=== PATIENT | male | born 1955 | race Caucasian/White ===

== ENCOUNTER → 2020-12-27 16:12 | Outpatient (CLI) | payer BC, SELFPAY ==
--- NOTE | ~2020-12-27 | XR_ITS ---
XR foot LT min 3V DATE: 12/27/2020 16:54 INDICATION: Left foot pain TECHNIQUE: 4 views COMPARISON: December 05, 2006 left foot FINDINGS: Mild to moderate plantar calcaneal enthesopathy without erosive change or periostitis, stab le since 12/05/2006. Diffuse osteopenia. No fracture, dislocation, periosteal reaction or bone destruction.. IMPRESSION: Plantar calcaneal enthesopathy Reviewed, dictated and finalized at location A. OR RECRUITER
== END ==
PROVIDERS: PCP Internal Medicine; Visit Provider Internal Medicine
DX: M77.32 Calcaneal spur, left foot (principal)
CPT/HCPCS: 73630

== ENCOUNTER → 2021-01-05 11:48 | Outpatient (CLI) | payer BC, SELFPAY ==
--- NOTE | ~2021-01-05 | XR_ITS ---
EXAMINATION: XR shoulder RT min 2V DATE: 01/05/2021 12:27 INDICATION: Acute onset right shoulder pain post fall 3 weeks prior. TECHNIQUE: AP internally and externally rotated, AP oblique externally rotated and axillary views of the left shoulder were obtained. COMPARISON: None FINDINGS: Normal alignment. No fracture. Glenohumeral joint is normal. Mild acromioclavicular osteoarthritis. Soft tissues are unremarkable. Visualized portions of the lungs are clear. IMPRESSION: Mild right acromioclavicular osteoarthritis. No acute osseous abnormality. Reviewed, dictated and finalized at location B. AZZO SUPERVISOR
== END ==
PROVIDERS: PCP Internal Medicine; Visit Provider Internal Medicine
DX: M25.519 Pain in unspecified shoulder (principal); M19.011 Primary osteoarthritis, right shoulder
CPT/HCPCS: 73030

== ENCOUNTER → 2021-02-27 10:49 | Outpatient (CLI) | payer BC, SELFPAY ==
--- NOTE | ~2021-02-27 | MR_ITS ---
EXAMINATION: MR foot LT wo con DATE: 02/27/2021 11:36 INDICATION: Mid left foot pain TECHNIQUE: Magnetic resonance imaging (MRI) of the left fore/mid foot was performed without intraveno us contrast. Sequences included sagittal T1-weighted FSE, sagittal fluid sensitive FSE STIR, coronal PD-weighted FS FSE, coronal T1-weighted FSE, axial PD-weighted FS FSE, and axial PD-weighted FSE. COMPARISON: Left foot radiographs dated 12/27/2020 FINDINGS: Bone alignment is normal. Normal marrow signal throughout with no fracture, reactive edema or patholo gic marrow replacing process. Lisfranc ligament complex along with the collateral ligament complex at the metatarsophalangeal and interphalangeal joints are normal. Visualized portions of the flexor and extensor tendons are normal. Physiologic amount fluid in the joint spaces. No bursitis, tenosynoviti s or other abnormal fluid collections. There is mild subcutaneous edema over the dorsum of the forefo ot. Visualized intrinsic musculature in the mid and forefoot is unremarkable. IMPRESSION: 1. Mild subcutaneous edema over the dorsum of the mid and forefoot. Otherwise unremarkable MRI with n o osseous abnormality. Reviewed, dictated and finalized at location A. IMPRESSION: 1. Mild subcutaneous edema over the dorsum of the mid and forefoot. Otherwise u nremarkable MRI with no osseous abnormality.
== END ==
PROVIDERS: Visit Provider Podiatrist Foot & Ankle Surgery
DX: M79.672 Pain in left foot (principal); M79.89 Other specified soft tissue disorders
CPT/HCPCS: 73718

== ENCOUNTER 2021-03-05 02:19 | Emergency (ER) | payer BC, SELFPAY ==
--- NOTE | ~2021-03-05 | CT_ITS ---
EXAMINATION: CT abdomen pelvis wo con DATE: 03/05/2021 03:41 INDICATION: Right flank pain for 5 days. Nausea. TECHNIQUE: Computed tomography (CT) of the abdomen and pelvis was performed without intravenous contr ast. Automated exposure control and iterative reconstruction technique were employed. Exam dose: 139 1.94 mGy-cm total exam DLP. COMPARISON: None. FINDINGS: 3.7 mm middle lobe nodule (series 4 image 1). The included lower lung zones are clear of in filtrate or consolidation. Normal heart size. No pericardial or pleural effusion. There is surface nodularity of the liver consistent with cirrhosis. There is splenomegaly, spleen diego suring up to 15.3 cm vertical dimension. Prominent abdominal varices are noted. Cholelithiasis. No pericholecystic fluid or fat stranding. No bile duct or pancreatic duct dilatation . No pancreatic mass lesion is evident. Normal morphology of the adrenal glands. There are 2 pinpoint nonobstructing mid and lower pole right renal calculi. At least several probable right renal cyst measuring up to approximately 1.8 cm maximal dimension. No right ureteral or left urinary tract calculus or hydroureteronephrosis on either side. The urinary bladder is unremarkable. There is prostate enlargement and calcification. Right fat-containing inguinal hernia. Bilateral vas deferens calcifications suggesting diabetes. There is a prominent amount of fecal material throughout the colon. No bowel obstruction, bowel wall thickening, pneumatosis or intraperitoneal free air. Normal appendix. There is atherosclerotic calcification of the abdominal aorta and iliac and femoral arteries but no a neurysm. No intraperitoneal or retroperitoneal or pelvic mass lesion or adenopathy or ascites is evid ent. Posterior and interbody spinal fusion at L5-S1. IMPRESSION: Cirrhosis and portal venous hypertension, splenomegaly, varices Cholelithiasis Right renal probable cysts 2. Pinpoint nonobstructing right renal calculi Normal appendix Right fat-containing inguinal hernia Bilateral vas deferens calcifications suggesting diabetes Reviewed, dictated and finalized at Location A. Reviewed, dictated and finalized at location A.
[2021-03-05 02:25] VITALS: BP 174/76; PULSE 84; RESP 16; TEMP 36.2; O2SAT 99
[2021-03-05] MEDS: KETOROLAC 30 MG/ML VIAL (*BKC) IV PUSH (02:52)
[2021-03-05 02:56] LABS: Basophils Percent Auto 0.3 % (0.2-1.2); Eosinophils Absolute Auto 0.1 K/mm3 (0-0.3); Eosinophils Percent Auto 0.7 % (0-4.4); Hematocrit 47.3 % (42.0-52.0); Hemoglobin 16.3 g/dL (14.0-18.0); Immature Granulocyte Absolute 0.02 K/mm3 (0.00-0.031); Immature Granulocyte Percent A 0.3 % (0-0.5); Immature Platelet Fraction Pct 4.1 % (0.9-11.2); Lymphocytes Percent Auto 16.1 % (18.3-44.2); Mean Corpuscular HGB Conc 34.5 g/dl (32-36); Mean Corpuscular Hemoglobin 32.9 pg (26-34); Mean Corpuscular Volume 95.6 fl (80-100); Mean Platelet Volume 10.1 fl (7.4-10.4); Monocytes Absolute Auto 0.6 K/mm3 (0.1-0.6); Monocytes Percent Auto 8.4 % (2.6-8.5); Neutrophils Absolute Auto 5.5 K/mm3 (1.3-6.7); Neutrophils Percent Auto 74.2 % (45.5-73.1); Platelet Count Result 89 k/mm3 (150-375); Red Blood Count 4.95 M/mm3 (4.6-6.20); White Blood Count 7.5 K/mm3 (4.5-10.0)
[2021-03-05 03:02] LABS: Add Urine Microscopic? YES; Appearance Urine Clear (Clear); Bacteria Urine Trace /hpf; Bilirubin Urine Negative (Negative); Blood Urine Negative (Negative); Color Urine Yellow (Yellow); Glucose Urine UA 3+ mg/dL (Negative); Ketones Urine Negative (Negative); Leukocyte Esterase Ur Negative LEU/UL (Negative); Nitrate Urine Negative (Negative); Protein Urine Negative (Negative); RBC Urine 0-2 /hpf (0-2); Squamous Epithelial Cell Urine Rare /hpf (Few); WBC Urine 0-3 /hpf
[2021-03-05 03:03] LABS: Specific Grav Ur 1.041 (1.001-1.035)
[2021-03-05 03:06] LABS: Alanine Aminotransferase 42 U/L (4-50); Albumin Level 4.2 g/dL (3.5-5.1); Alkaline Phosphatase 116 U/L (38-126); Anion Gap 6 mmol/L (8-16); Aspartate Amino Transferase 49 U/L (17-59); Bilirubin,Total 1.7 mg/dL (0.2-1.3); Blood Urea Nitrogen 12 mg/dL (9-20); Calcium 9.2 mg/dL (8.4-10.2); Carbon Dioxide 26 mmol/L (22-30); Chloride 108 mmol/L (98-107); Estimated Glomerular Filt Rate > 60; Glucose 133 mg/dL (75-110); Lipase 107 U/L (23-300); Potassium 3.9 mmol/L (3.4-5.0); Sodium 140 mmol/L (137-145)
[2021-03-05] MEDS: MORPHINE SULFATE (*CRX) 4 MG/ML INJ IV PUSH (03:18)
[2021-03-05 03:53] VITALS: BP 167/78; PULSE 76; RESP 18; O2SAT 97
--- NOTE | 2021-03-05 04:17 | ED.GENADULT ---
HPI - General Adult General Chief complaint: Back Pain/Injury Stated complaint: back pain Time Seen by Provider: 03/05/21 02:31 Source: RN notes reviewed History of Present Illness HPI narrative: Patient presents emergency department from home for right lower back pain. Patient states symptoms began approximately 5 days ago. Pain is located in the right lower back and radiates around to the right side described as aching in nature and worse with rotation of the torso patient states he has been wearing an Aircast down on his left leg from an injury that seems to have caused him to walk a little uneven and is causes back pain he states he took Tylenol at home with minimal relief. Denies any fevers or chills chest pain shortness of breath abdominal pain nausea vomiting or any other symptoms Related Data Allergies Allergy/AdvReac Type Severity Reaction Status Date / Time MYCINS Allergy Mild Uncoded 07/23/10 13:32 Review of Systems Review of Systems: Narrative: Gen.: Denies fevers or chills ENT: Denies congestion Respiratory: Denies shortness of breath or cough CV: Denies chest pain or palpitations GI: Denies abdominal pain nausea, emesis or diarrhea denies burning, urgency, frequency or hematuria Musculoskeletal: See HPI Neuro: Denies numbness, tingling, weakness or focal weakness Skin: Denies rash Except as documented, all other systems reviewed and negative [facility] Past Medical History Medical History (Updated 03/05/21 @ 04:53 by Ridge Leigh DO) Hypertension Social History Social History (Updated 03/05/21 @ 04:51 by Ridge Leigh DO) Smoking status: Never smoker Exam Narrative: Exam Narrative: APPEARANCE: No acute distress, nontoxic, resting in bed EYES: EOMI HEENT: Normocephalic, atraumatic, OMM RESPIRATORY: No respiratory distress Clear to auscultation bilaterally with no rhonchi wheezing or rales. CARDIOVASCULAR: Regular rate and rhythm without murmurs rubs or gallops. ABDOMINAL: Soft, nontender, nondistended, no rebound or guarding right flank tenderness MUSCULOSKELETAl: Moves all extremities. No clubbing, cyanosis or edema. Back: No midline thoracic lumbar tenderness palpation turn palpation right para 2 muscles L3-5, pain worse with rotation of the left NEURO: Awake and alert. Following commands, speech normal, no focal deficits muscle strength 5 out of 5 bilateral lower extremities SKIN:: Warm, dry. No rashes lesions or abrasions PSYCHIATRIC: Normal affect/mood, Course Course Emergency Course: Discussed with patient his platelet count he states he does not have a history of low platelets and is followed by his PCP Discussed with patient results of workup and diagnosis. Discussed need for follow-up with primary care, proper use of medication, and reasons to return to the emergency department. Patient understands and agrees to current treatment plan Vital Signs Vital signs: Vital Signs Temperature 97.2 F L 03/05/21 02:25 Pulse Rate 84 03/05/21 02:25 Respiratory Rate 16 03/05/21 02:25 Blood Pressure 174/76 H 03/05/21 02:25 Pulse Oximetry 99 03/05/21 02:25 Temperature 97.2 F L 03/05/21 02:25 Pulse Rate 76 03/05/21 03:53 Respiratory Rate 18 03/05/21 03:53 Blood Pressure 167/78 H 03/05/21 03:53 Pulse Oximetry 97 03/05/21 03:53 Medical Decision Making Vital Signs Vital Signs: Vital Signs Temperature 97.2 F L 03/05/21 02:25 Pulse Rate 84 03/05/21 02:25 Respiratory Rate 16 03/05/21 02:25 Blood Pressure 174/76 H 03/05/21 02:25 Pulse Oximetry 99 03/05/21 02:25 Temperature 97.2 F L 03/05/21 02:25 Pulse Rate 76 03/05/21 03:53 Respiratory Rate 18 03/05/21 03:53 Blood Pressure 167/78 H 03/05/21 03:53 Pulse Oximetry 97 03/05/21 03:53 Lab Data Result diagrams: 03/05/21 02:48 03/05/21 02:49 Labs: Lab Results 03/05/21 03/05/21 03/05/21 Range/Units 02:48 02:48 02:49 WBC 7.5 (4.5-10.0) K/mm3
[2021-03-05 05:10] VITALS: BP 158/80; PULSE 72; RESP 16; O2SAT 97
== END 2021-03-05 05:10 | disposition home or self-care (01) ==
PROVIDERS: Emergency Provider Emergency Medicine; PCP Internal Medicine
DX: M54.5 Low back pain (principal); D69.6 Thrombocytopenia, unspecified; I10 Essential (primary) hypertension; K74.60 Unspecified cirrhosis of liver; K76.6 Portal hypertension; R16.1 Splenomegaly, not elsewhere classified; K80.20 Calculus of gallbladder without cholecystitis without obstruction; N20.0 Calculus of kidney; K40.90 Unilateral inguinal hernia, without obstruction or gangrene, not specified as recurrent; R93.89 Abnormal findings on diagnostic imaging of other specified body structures
CPT/HCPCS: 36415; 74176; 80053; 81001; 83690; 85025; 85055; 96374; 96375; 99284; J1885; J2270

== ENCOUNTER 2021-03-05 16:18 | Emergency (ER) | payer BC, SELFPAY ==
--- NOTE | ~2021-03-05 | XR_ITS ---
EXAMINATION: XR chest 1V portable DATE: 03/05/2021 18:43 INDICATION: Right-sided chest pain. TECHNIQUE: frontal view of the chest was obtained. COMPARISON: None FINDINGS: The lungs are clear with no focal airspace opacities, pulmonary edema, pleural effusion or pneumothor ax. The cardiomediastinal silhouette is normal. Mild thoracic spondylosis. IMPRESSION: 1. No acute cardiopulmonary disease. Reviewed, dictated and finalized at location A.
[2021-03-05 16:24] VITALS: BP 148/76; PULSE 82; RESP 18; TEMP 36.4; O2SAT 100
--- NOTE | 2021-03-05 17:25 | PC.NURSE ---
Arrives ambulatory steady gait from triage, c/o R side mid-back pain, states he fell months ago and had been wearing an aircast which made him walk uneven, thus straining his back. Was seen in ED last night for same, took prescribed muscle relaxer and Aleve w/o relief, returned to ED
--- NOTE | 2021-03-05 18:27 | ECG_ITS ---
Measurements Intervals [place] Rate: 71 P: 57 [place]: 172 QRS: -40 QRSD: 139 T: -1 QT: 440 QTc: 481 Interpretive Statements SINUS RHYTHM RIGHT BUNDLE BRANCH BLOCK CONSIDER INFERIOR INFARCT, AGE INDETERMINATE BASELINE ARTIFACT- II, AVR, AVF, V1 ABNORMAL ECG Electronically Signed On 03-05-2021 19:24:57 CDT by Lam Rosales D.O.
[2021-03-05 19:04] LABS: Basophils Percent Auto 0.2 % (0.2-1.2); Hematocrit 47.4 % (42.0-52.0); Hemoglobin 16.2 g/dL (14.0-18.0); Immature Granulocyte Absolute 0.04 K/mm3 (0.00-0.031); Immature Granulocyte Percent A 0.3 % (0-0.5); Lymphocytes Absolute Auto 0.87 K/mm3 (0.9-3.2); Lymphocytes Percent Auto 7.1 % (18.3-44.2); Mean Corpuscular HGB Conc 34.2 g/dl (32-36); Mean Corpuscular Hemoglobin 32.9 pg (26-34); Mean Corpuscular Volume 96.1 fl (80-100); Mean Platelet Volume 10.3 fl (7.4-10.4); Monocytes Absolute Auto 1.2 K/mm3 (0.1-0.6); Neutrophils Percent Auto 82.4 % (45.5-73.1); Platelet Count Result 80 k/mm3 (150-375); Red Blood Count 4.93 M/mm3 (4.6-6.20); White Blood Count 12.2 K/mm3 (4.5-10.0)
[2021-03-05 19:12] LABS: Anion Gap 6 mmol/L (8-16); Blood Urea Nitrogen 12 mg/dL (9-20); Calcium 9.2 mg/dL (8.4-10.2); Carbon Dioxide 28 mmol/L (22-30); Chloride 105 mmol/L (98-107); Estimated CRCL calculation 155 ml/min; Estimated Glomerular Filt Rate > 60; Glucose 127 mg/dL (75-110); Sodium 139 mmol/L (137-145)
[2021-03-05 19:23] LABS: Troponin I < 0.012 ng/mL (0.000-0.034)
--- NOTE | 2021-03-05 20:11 | ED.BACK ---
HPI - Back Pain/Injury General Chief Complaint: Back Pain/Injury Stated Complaint: back pain Time Seen by Provider: 03/05/21 17:16 Source: patient Mode of arrival: ambulatory Limitations: no limitations History of Present Illness HPI Narrative: 65-year-old with a history of thrombocytopenia and chronic low back pain here with complaints of left lower back pain. He also states that he was seen here in the ER had a CAT scan and blood work done was told to return to the ER if he had pain. Patient while he was sitting in the ER started having chest pain and he also states that he was short of breath. MD elicited complaint: back pain Pertinent past history: prior back pain Similar Symptoms Previously: Yes Quality: aching Location: lumbar spine Radiation: none Exacerbating factors: none Associated symptoms: denies other symptoms Related Data Allergies Allergy/AdvReac Type Severity Reaction Status Date / Time MYCINS Allergy Mild Unknown Uncoded 03/05/21 16:24 Review of Systems Review of Systems: All systems reviewed & are unremarkable except as noted in HPI and below Constitutional: Constitutional: Reports no additional constitutional complaints Eyes: Eyes: Reports no additional eye complaints ENT: Reports system reviewed and no additional complaints, except as documented Cardiovascular: Cardiovascular: Reports chest pain Respiratory: Respiratory: Reports dyspnea Gastrointestinal: Gastrointestinal: Reports no additional gastrointestinal complaints Musculoskeletal: Musculoskeletal: Reports as per HPI [facility] Past Medical History Medical History Hypertension Social History Social History Smoking status: Never smoker Gender identity (if verbalized by the patient): Male Exam Narrative: Exam Narrative: GENERAL: Well-appearing, well-nourished, and in no acute distress. HEAD: Normocephalic, atraumatic. EYES: PERRLA and EOMI.t. NECK: Supple. CHEST: Clear to auscultation. No respiratory distress. HEART: Regular rate and rhythm. No murmur heard. Normal peripheral pulses. ABDOMEN: Soft, nontender, nondistended, normal active bowel sounds. No CVA tenderness. EXTREMITIES: Normal range of motion. No edema. SKIN: Warm, dry, no rash. NEURO: No focal deficits. Alert and oriented x3. PSYCH: Normal mood and affect. Course Course Emergency Course: Patient while he was sitting in the room started having chest pain and shortness of breath. I did a EKG which was unremarkable did a cardiac work-up which was unremarkable as well. Informed patient about his lab work and EKG and chest x-ray findings his pain is atypical. He states by the time he got the results he is feeling better. He is requesting some form back pain. Vital Signs Vital signs: Vital Signs Temperature 36.4 C L 03/05/21 16:24 Pulse Rate 82 03/05/21 16:24 Respiratory Rate 18 03/05/21 16:24 Blood Pressure 148/76 H 03/05/21 16:24 Pulse Oximetry 100 03/05/21 16:24 Temperature 36.4 C L 03/05/21 16:24 Pulse Rate 82 03/05/21 16:24 Respiratory Rate 18 03/05/21 16:24 Blood Pressure 148/76 H 03/05/21 16:24 Pulse Oximetry 100 03/05/21 16:24 MDM - Back Pain/Injury Lab Data Result diagrams: 03/05/21 18:55 03/05/21 18:55 Labs: Lab Results 03/05/21 03/05/21 Range/Units 18:55 18:55 WBC 12.2 H (4.5-10.0) K/mm3 RBC 4.93 (4.6-6.20) M/mm3 Hgb 16.2 (14.0-18.0) g/dL Hct 47.4 (42.0-52.0) % MCV 96.1 (80-100) fl MCH 32.9 (26-34) pg MCHC 34.2 (32-36) g/dl RDW 13.0 (11.5-14.5) % Plt Count 80 L (150-375) k/mm3 MPV 10.3 (7.4-10.4) fl Immature Gran % (Auto) 0.3 (0-0.5) % Neut % (Auto) 82.4 H (45.5-73.1) % Lymph % (Auto) 7.1 L (18.3-44.2) % Antelope % (Auto) 10.0 H (2.6-8.5) % Eos % (Auto) 0.0 (0-4.4) % Baso % (Auto) 0.2 (0.2-1.2) % Lymph # (Aut
[2021-03-05 20:35] VITALS: BP 150/84; PULSE 79; RESP 18; O2SAT 99
== END 2021-03-05 20:37 | disposition home or self-care (01) ==
PROVIDERS: Emergency Provider Family Medicine; PCP Internal Medicine
DX: M54.5 Low back pain (principal); R07.89 Other chest pain; I10 Essential (primary) hypertension; I45.10 Unspecified right bundle-branch block; R94.31 Abnormal electrocardiogram [ECG] [EKG]
CPT/HCPCS: 36415; 71045; 80048; 84484; 85025; 85055; 93005; 99284

== ENCOUNTER 2021-03-21 11:47 | Outpatient (CLI) | payer BC, SELFPAY ==
--- NOTE | ~2021-03-21 | CT_ITS ---
EXAMINATION: CT abdomen pelvis w con EXAM DATE: 03/21/2021 12:29 INDICATION: Leukocytosis. TECHNIQUE: Spiral CT of the abdomen and pelvis was performed following intravenous injection of 100 m L Omnipaque 350. Axial, coronal and sagittal images of the abdomen and pelvis were reviewed. The do se-length product (DLP) for this examination was 1178.36 mGy-cm. The exposure was tailored according to patient size (auto mA exposure control), and iterative reconstruction (ASIR) was used as addition al dose reduction technique. Comparison is made to prior examination from 03/05/2021. FINDINGS: Patient has developed severe gallbladder distention and pericholecystic fat stranding. Ther e is small amount of pericholecystic fluid. There are several peripherally calcified gallstones measu ring up to 2.5 cm. Acute cholecystitis. Some reactive periportal lymphadenopathy. There is cirrhosis and portal hypertension, with large splenorenal collateralization. No portal venou s thrombosis. Trace perihepatic ascites. The adrenal glands, pancreas. Spleen measures 17 cm in crani ocaudal dimension, enlarged. Portal and splenic veins are patent. Kidneys enhance symmetrically. T here is no hydronephrosis. Scattered small renal cysts. The prostate is unremarkable. Small right in guinal fat-containing hernia. The bladder is unremarkable. There is mild scattered arteriosclerotic disease. The appendix is normal. The stomach and small bowel are unremarkable. There is moderate amount of c olonic stool. No free intraperitoneal gas. The heart is normal in size. There are no pericardial or pleural effusions. The lung bases are unremarkable. L5-S1 lumbar fusion. IMPRESSION: 1. Acute cholecystitis. 2. Cirrhosis, portal hypertension. Splenomegaly. Reviewed, dictated and finalized at location A.
== END 2021-03-21 11:48 | disposition home or self-care (01) ==
PROVIDERS: PCP Internal Medicine; Visit Provider Internal Medicine
DX: D72.829 Elevated white blood cell count, unspecified (principal); K74.69 Other cirrhosis of liver; K81.0 Acute cholecystitis; R16.1 Splenomegaly, not elsewhere classified
CPT/HCPCS: 74177; Q9967

== ENCOUNTER 2021-03-21 12:50 | Emergency (ER) | payer BC, SELFPAY ==
[2021-03-21 13:02] VITALS: BP 101/65; PULSE 88; RESP 18; TEMP 36.1; O2SAT 98
[2021-03-21 13:21] LABS: Basophils Percent Auto 0.3 % (0.2-1.2); Eosinophils Absolute Auto 0.1 K/mm3 (0-0.3); Eosinophils Percent Auto 1.2 % (0-4.4); Hematocrit 39.9 % (42.0-52.0); Hemoglobin 14.1 g/dL (14.0-18.0); Immature Granulocyte Absolute 0.09 K/mm3 (0.00-0.031); Immature Granulocyte Percent A 0.8 % (0-0.5); Lymphocytes Absolute Auto 1.02 K/mm3 (0.9-3.2); Lymphocytes Percent Auto 8.7 % (18.3-44.2); Mean Corpuscular HGB Conc 35.3 g/dl (32-36); Mean Corpuscular Hemoglobin 32.9 pg (26-34); Mean Platelet Volume 9.7 fl (7.4-10.4); Monocytes Absolute Auto 1.3 K/mm3 (0.1-0.6); Monocytes Percent Auto 11.1 % (2.6-8.5); Neutrophils Absolute Auto 9.1 K/mm3 (1.3-6.7); Neutrophils Percent Auto 77.9 % (45.5-73.1); Platelet Count Result 147 k/mm3 (150-375); Red Blood Count 4.29 M/mm3 (4.6-6.20); Red Cell Distribution Width 13.2 % (11.5-14.5); White Blood Count 11.7 K/mm3 (4.5-10.0)
--- NOTE | 2021-03-21 13:28 | ED.GENADULT ---
HPI - General Adult General Chief complaint: Abdominal Pain <Joseluis Montes PA-C - Last Filed: 03/21/21 15:52> Stated complaint: chills/abdominal pain <Joseluis Montes PA-C - Last Filed: 03/21/21 15:52> Time Seen by Provider: 03/21/21 12:54 <Joseluis Montes PA-C - Last Filed: 03/21/21 15:52> Source: patient, family, RN notes reviewed and old records reviewed <Joseluis Montes PA-C - Last Filed: 03/21/21 15:52> Mode of arrival: ambulatory <Joseluis Montes PA-C - Last Filed: 03/21/21 15:52> Limitations: no limitations <Joseluis Montes PA-C - Last Filed: 03/21/21 15:52> History of Present Illness HPI narrative: Patient is a 65-year-old male who presents from CAT scan after having a CAT scan showing acute cholecystitis patient has been having abdominal pain localized to the right upper quadrant patient has been experiencing this discomfort in the recent past and had a recent hospital visit for this patient notes that it typically occurs after eating localized to the right upper quadrant and to the right upper chest patient denies vomiting diarrhea patient currently notes minimal pain but has eaten very little today <Joseluis Montes PA-C - Last Filed: 03/21/21 15:52> Related Data Allergies/adverse reactions: Allergies Allergy/AdvReac Type Severity Reaction Status Date / Time clindamycin Allergy Unknown Unknown Verified 03/21/21 15:01 gentamicin Allergy Unknown Unknown Verified 03/21/21 15:01 Macrolide Antibiotics Allergy Unknown Unknown Verified 03/21/21 15:01 neomycin Allergy Unknown Unknown Verified 03/21/21 15:01 vancomycin Allergy Unknown Unknown Verified 03/21/21 15:01 MYCINS Allergy Mild Unknown Uncoded 03/21/21 13:11 <Joseluis Montes PA-C - Last Filed: 03/21/21 15:52> Review of Systems Review of Systems: All systems reviewed & are unremarkable except as noted in HPI and below <Joseluis Montes PA-C - Last Filed: 03/21/21 15:52> PMFSH Past Medical History Medical History: Medical History Hypertension <Joseluis Montes PA-C - Last Filed: 03/21/21 15:52> Social History Social History: Social History Smoking status: Never smoker Gender identity (if verbalized by the patient): Male <Joseluis Montes PA-C - Last Filed: 03/21/21 15:52> Exam Narrative: Exam Narrative: GENERAL: Well-appearing, well-nourished, and in no acute distress. HEAD: Normocephalic, atraumatic. EYES: PERRLA and EOMI. ENT: Nares clear, no rhinorrhea or epistaxis. Mucous membranes moist. CHEST: Clear to auscultation. No respiratory distress. No wheezes rales or rhonchi HEART: Regular rate and rhythm. No murmur heard. Normal peripheral pulses. ABDOMEN: Soft, minimal right upper quadrant tenderness to palpation, distended, normal active bowel sounds. EXTREMITIES: Normal range of motion. No edema. SKIN: Warm, dry, no rash. NEURO: No focal deficits. Alert and oriented x3. PSYCH: Normal mood and affect. <Joseluis Montes PA-C - Last Filed: 03/21/21 15:52> Course Course Emergency Course: Patient found to have acute cholecystitis will be transferred to [facility] for evaluation by general surgery patient agrees with this plan other hospitals including our general surgeon were contacted and recommended patient be sent to facility with hepatobiliary patient preferred [facility] who was contacted and Dr. Zamudio general surgeon has agreed to take the patient to the emergency department with Dr. Alfred as the accepting ER attending. Patient at this time hemodynamically stable ABCs and vital signs intact and stable. Patient has been hydrated and given Zosyn as was recommended by Dr. Gamez general surgery [facility] <Joseluis Montes PA-C - Last Filed: 03/21/21 15:52> DRIED FRUIT WASHER/PA Physician Supervision Pt presenting from CT scan diagnosed with acute ch
[2021-03-21 13:34] LABS: Alanine Aminotransferase 67 U/L (4-50); Albumin Level 2.9 g/dL (3.5-5.1); Alkaline Phosphatase 210 U/L (38-126); Anion Gap 4 mmol/L (8-16); Aspartate Amino Transferase 73 U/L (17-59); Bilirubin,Total 1.1 mg/dL (0.2-1.3); Blood Urea Nitrogen 10 mg/dL (9-20); Calcium 8.6 mg/dL (8.4-10.2); Carbon Dioxide 25 mmol/L (22-30); Chloride 105 mmol/L (98-107); Estimated CRCL calculation 153 ml/min; Estimated Glomerular Filt Rate > 60; Glucose 135 mg/dL (75-110); Lipase 343 U/L (23-300); Potassium 3.7 mmol/L (3.4-5.0); Sodium 134 mmol/L (137-145)
[2021-03-21] MEDS: PANTOPRAZOLE SODIUM IV 40 MG VIAL IV PUSH (13:45)
[2021-03-21] MEDS: SODIUM CHLORIDE 0.9% IV 1,000 ML 999 ML IV CONT (13:45)
[2021-03-21 13:50] LABS: Add Urine Microscopic? YES; Appearance Urine Clear (Clear); Bacteria Urine Trace /hpf; Bilirubin Urine Negative (Negative); Blood Urine Negative (Negative); Color Urine Yellow (Yellow); Glucose Urine UA 3+ mg/dL (Negative); Ketones Urine Negative (Negative); Leukocyte Esterase Ur Negative LEU/UL (Negative); Nitrate Urine Negative (Negative); Protein Urine Negative (Negative); Squamous Epithelial Cell Urine Rare /hpf (Few); WBC Urine 0-3 /hpf
[2021-03-21 16:10] VITALS: BP 127/67; PULSE 82; RESP 19; O2SAT 100
[2021-03-21] MEDS: MORPHINE SULFATE (*CRX) 2 MG/ML INJ IV PUSH (16:41)
== END 2021-03-21 17:34 | disposition short-term general hospital (02) ==
PROVIDERS: Emergency Provider Emergency Medicine; PCP Internal Medicine
DX: K81.0 Acute cholecystitis (principal); I10 Essential (primary) hypertension
CPT/HCPCS: 36415; 80053; 81001; 83690; 85025; 96361; 96365; 96375; 99285; C9113; J2270; J2543; J7030

== ENCOUNTER 2021-04-13 11:56 | Outpatient (CLI) | payer BC, SELFPAY ==
--- NOTE | ~2021-04-13 | US_ITS ---
EXAMINATION: US venous doppler LE EXAM DATE: 04/13/2021 12:44 INDICATION: Bilateral leg swelling. Redness. TECHNIQUE: Multiple grayscale, color flow and Doppler images of the lower extremity deep venous syste ms bilaterally were obtained and reviewed. There is no prior study for comparison. FINDINGS: Right side: The right common femoral, femoral and profunda veins demonstrate normal color flow, respi ratory variation, augmentation and compressibility. Compressibility, color flow confirmed within the right popliteal, posterior tibial, peroneal, and greater saphenous veins. Left side: The left common femoral, femoral and profunda veins demonstrate normal color flow, respira tory variation, augmentation and compressibility. Compressibility, color flow confirmed within the l eft popliteal, posterior tibial, peroneal, and greater saphenous veins. IMPRESSION: 1. No lower extremity deep venous thrombosis bilaterally. Reviewed, dictated and finalized at location A.
== END 2021-04-13 11:57 | disposition home or self-care (01) ==
PROVIDERS: PCP Internal Medicine; Visit Provider Internal Medicine
DX: M79.89 Other specified soft tissue disorders (principal)
CPT/HCPCS: 93970

== ENCOUNTER → 2021-08-28 15:08 | Outpatient (CLI) | payer BC, SELFPAY ==
--- NOTE | ~2021-08-28 | XR_ITS ---
XR knee RT 2V 08/28/2021 15:23 Indication: Right knee pain Procedure: 2 views right knee Comparison: No prior studies for comparison. Findings: There is mild patellofemoral compartment osteoarthritis. No fracture, subluxation or disloc ation. No significant joint effusion. No foreign bodies. Impression: 1: Mild patellofemoral compartment osteoarthritis. Reviewed, dictated and finalized at location A. Impression: 1: Mild patellofemoral compartment osteoarthritis.
== END ==
PROVIDERS: PCP Internal Medicine; Visit Provider Internal Medicine
DX: M25.561 Pain in right knee (principal); M17.11 Unilateral primary osteoarthritis, right knee
CPT/HCPCS: 73560

== ENCOUNTER 2022-10-15 17:41 | Emergency (ER) | payer OTHER, SELFPAY ==
--- NOTE | ~2022-10-15 | XR_ITS ---
EXAM: XR nasal bones min 3V DATE: 10/15/2022 18:27 HISTORY: FALL PAIN AND SWELLING TO NOSE . COMPARISON: None available. FINDINGS: Normal mineralization. Possible minimal depression of the anterior nasal bones in the late ral views. Otherwise no fracture. No lytic or blastic lesion. No intracranial calcification. No erosi on or periosteal change. Aerated spaces are clear. IMPRESSION: Possible minimal depression of the anterior nasal bones, may represent acute nasal bone f racture if accompanied by pain/point tenderness. Reviewed, dictated and finalized at location K. SMISSION SUPERINTENDENT IMPRESSION: Possible minimal depression of the anterior nasal bones, may repres ent acute nasal bone fracture if accompanied by pain/point tenderness.
--- NOTE | ~2022-10-15 | XR_ITS ---
EXAM: XR wrist LT min 3V, XR wrist RT min 3V DATE: 10/15/2022 18:26 (accession [id number]), 10/15/2022 18:27 (accession [id number]) HISTORY: FALL, PAIN AND SWELLING BILATERAL WRIST. . COMPARISON: None available. FINDINGS: Decreased mineralization. Comminuted mildly impacted intra-articular fracture of the dista l left radius. No lytic or blastic lesion. Mild scattered degenerative change. No erosion or perioste al change. Soft tissues within normal limits. IMPRESSION: Comminuted, mildly impacted, intra-articular fracture of the distal left radius. No acute osseous finding in the right wrist. Reviewed, dictated and finalized at location K. RVISOR MODEL MAKING IMPRESSION: Comminuted, mildly impacted, intra-articular fracture of the distal left radius. No acute osseous finding in the right wrist.
[2022-10-15 17:57] VITALS: BP 119/67; PULSE 69; RESP 18; TEMP 36.8; O2SAT 98
--- NOTE | 2022-10-15 18:53 | ED.GENADULT ---
HPI - General Adult General Chief complaint: Fall Stated complaint: FALL/INJURIES Time Seen by Provider: 10/15/22 18:39 Source: patient Mode of arrival: ambulatory Limitations: no limitations History of Present Illness HPI narrative: Patient presents today after a fall last night around 10:00 p.m. in his home. States he fell forward onto outstretched hand as, striking his nose on the ground as well. Denies loss of consciousness. He did have some epistaxis after the fall. Denies headache, nausea vomiting, vision changes. Does have a bit of dizziness, but states this is baseline with his other, ?health issues? and is no worse than normal. He is having pain in his bilateral wrists concurrently rates his pain 6/10. He has tried no medication for symptoms prior to arrival. Related Data Allergies Allergy/AdvReac Type Severity Reaction Status Date / Time clindamycin Allergy Unknown Unknown Verified 10/15/22 18:45 gentamicin Allergy Unknown Unknown Verified 10/15/22 18:45 Macrolide Antibiotics Allergy Unknown Unknown Verified 10/15/22 18:45 neomycin Allergy Unknown Unknown Verified 10/15/22 18:45 vancomycin Allergy Unknown Unknown Verified 10/15/22 18:45 MYCINS Allergy Mild Unknown Uncoded 10/15/22 18:45 Review of Systems Review of Systems: CONSTITUTIONAL: Denies body aches, fever, chills, or sweats. EYES: Denies visual changes, redness, or discharge. ENT: Denies rhinorrhea, congestion, sore throat, or otalgia. CARDIOVASCULAR: Denies chest pain, palpitations, or edema. RESPIRATORY: Denies cough or dyspnea. GASTROINTESTINAL: Denies abdominal pain, nausea, vomiting, or diarrhea. GENITOURINARY: Denies dysuria or hematuria. SKIN: Denies rash, itching, or wounds. +Facial bruising MUSCULOSKELETAL: Denies back pain, or myalgia.+ bilateral wrist pain NEUROLOGIC: Denies headache, numbness, tingling, or weakness. PSYCH: Denies depression or anxiety. [facility] Past Medical History Medical History Hypertension Social History Social History Smoking status: Never smoker Gender identity (if verbalized by the patient): Male Comments At time of signature, I have reviewed and agree with nursing past medical, surgical, social and family history unless otherwise noted. Please see nursing chart for further information. There is no relevant family history pertinent to the presenting complaint Exam Narrative: GENERAL: Well-appearing, well-nourished, and in no acute distress. HEAD: Normocephalic EYES: EOMI. PERRL. No nystagmus. No redness or drainage. Conjunctivae normal. ENT: Mucous membranes pink and moist. Nasal bridge maintainer. Patient has ecchymosis over the nasal bridge that extends underneath both eyes. NECK: Normal AROM. CHEST: No respiratory distress. Clear to auscultation. HEART: Regular rate and rhythm. No murmur appreciated. Normal peripheral pulses. EXTREMITIES: Right wrist: Mild soft tissue tenderness about the wrist. Mild edema. Distal sensation intact. Capillary refill normal. Radial pulse normal. Full range of motion with mild increased pain. Left wrist: Tenderness along the distal radius with moderate edema. Distal sensation intact. Capillary refill normal. Radial pulse normal. Decreased range of motion due to pain. SKIN: Warm, dry, no rash. Capillary refill normal. Normal skin turgor. NEURO: No focal deficits. Alert and oriented x3. Gait steady. PSYCH: Normal affect. No signs of depression or anxiety. Course Course Level of Care: Express Care Visit Vital Signs Vital signs: Vital Signs Temperature 98.3 F 10/15/22 17:57 Pulse Rate 69 10/15/22 17:57 Respiratory Rate 18 10/15/22 17:57 Blood Pressure 119/67 10/15/22 17:57 Pulse Oximetry 98 10/15/22 17:57 Oxygen Delivery Room Air 10/15/22 17:57 Temperature 98.3 F 10/15/22 17:57 Pulse Rate 69 10/15/22 17:57
== END 2022-10-15 19:22 | disposition home or self-care (01) ==
PROVIDERS: Emergency Provider Nurse Practitioner; PCP Internal Medicine
DX: S62.102A Fracture of unspecified carpal bone, left wrist, initial encounter for closed fracture (principal); S02.2XXB Fracture of nasal bones, initial encounter for open fracture; S63.501A Unspecified sprain of right wrist, initial encounter; I10 Essential (primary) hypertension; W18.39XA Other fall on same level, initial encounter; Y92.009 Unspecified place in unspecified non-institutional (private) residence as the place of occurrence of the external cause
CPT/HCPCS: 29125; 70160; 73110; 99214; A4565; G0463

== ENCOUNTER 2023-05-17 11:18 | Outpatient (CLI) | payer MEDICARE, SELFPAY ==
--- NOTE | ~2023-05-17 | XR_ITS ---
Cervical Spine: AP, lateral, open-mouth views Clinical History: Pain Findings: The normal lordotic curve is maintained. No fracture seen. There is minimal grade 1 anterol isthesis of C3 over C4. There is mild to moderate facet arthropathy at C3-C4 and C4-C5. The intervert ebral disc spaces are well maintained. Pre-vertebral soft tissues are unremarkable. Impression: Minimal grade 1 anterolisthesis of C3 over C4. Facet arthropathy the mid upper to mid cervical spine, as detailed above. Reviewed, dictated and finalized at location M. Impression: Minimal grade 1 anterolisthesis of C3 over C4. Facet arthropathy the mid upper to mid cervical spine, as detailed above.
--- NOTE | ~2023-05-17 | XR_ITS ---
AP and lateral views of the bilateral hips Clinical history: Pain Findings: No acute fracture or dislocation is seen. Osseous alignment is anatomic. Bilateral hip and SI joint spaces are preserved. Lumbosacral spinal fixation hardware is partially imaged. Soft tissues are unremarkable. Impression: Unremarkable bilateral hip joints. Lumbosacral spinal fusion hardware, partially imaged. Reviewed, dictated and finalized at location . Impression: Unremarkable bilateral hip joints. Lumbosacral spinal fusion hardware, partially imaged.
== END 2023-05-17 11:19 | disposition home or self-care (01) ==
PROVIDERS: PCP Internal Medicine; Visit Provider Internal Medicine
DX: M47.812 Spondylosis without myelopathy or radiculopathy, cervical region (principal); M54.2 Cervicalgia; M25.552 Pain in left hip; M25.551 Pain in right hip
CPT/HCPCS: 72040; 73521

== ENCOUNTER 2023-05-24 09:50 | Outpatient (CLI) | payer MEDICARE, SELFPAY ==
[2023-05-24 10:39] LABS: Basophils Percent Auto 0.4 % (0.2-1.2); Eosinophils Absolute Auto 0.2 K/mm3 (0-0.3); Eosinophils Percent Auto 3.7 % (0-4.4); Hematocrit 38.1 % (42.0-52.0); Hemoglobin 13.1 g/dL (14.0-18.0); Immature Granulocyte Absolute 0.02 K/mm3 (0.00-0.031); Immature Granulocyte Percent A 0.4 % (0-0.5); Immature Platelet Fraction Pct 4.5 % (0.9-11.2); Lymphocytes Absolute Auto 1.36 K/mm3 (0.9-3.2); Lymphocytes Percent Auto 26.5 % (18.3-44.2); Mean Corpuscular HGB Conc 34.4 g/dl (32-36); Mean Platelet Volume 10.9 fl (7.4-10.4); Monocytes Absolute Auto 0.5 K/mm3 (0.1-0.6); Monocytes Percent Auto 9.7 % (2.6-8.5); Neutrophils Absolute Auto 3.1 K/mm3 (1.3-6.7); Neutrophils Percent Auto 59.3 % (45.5-73.1); Platelet Count Result 69 k/mm3 (150-375); Red Blood Count 3.85 M/mm3 (4.6-6.20); Red Cell Distribution Width 13.7 % (11.5-14.5); White Blood Count 5.1 K/mm3 (4.5-10.0)
[2023-05-24 10:47] LABS: Alanine Aminotransferase 38 U/L (6-50); Albumin Level 2.9 g/dL (3.5-5.1); Alkaline Phosphatase 110 U/L (38-126); Anion Gap 5 mmol/L (8-16); Aspartate Amino Transferase 42 U/L (17-59); Bilirubin,Total 1.5 mg/dL (0.2-1.3); Blood Urea Nitrogen 10 mg/dL (9-20); Carbon Dioxide 25 mmol/L (22-30); Chloride 110 mmol/L (98-107); Estimated Glomerular Filt Rate > 60; Glucose 99 mg/dL (65-110); Potassium 3.5 mmol/L (3.4-5.0); Sodium 140 mmol/L (137-145)
[2023-05-24 10:54] LABS: INR 1.4; Prothrombin Time 17.8 Seconds (11.1-14.7)
[2023-05-24 11:07] LABS: Large Platelets Present; Platelet Clumps Present; Platelet Estimate Decreased (Adequate); Schistocytes None Seen (NORMAL)
[2023-05-30 14:43] LABS: Alpha Fetoprotein Tumor Marker 2.7 ng/mL (<6.1)
== END 2023-05-24 09:51 | disposition home or self-care (01) ==
PROVIDERS: PCP Internal Medicine
DX: K74.69 Other cirrhosis of liver (principal)
CPT/HCPCS: 36415; 80053; 82105; 85025; 85055; 85610

== ENCOUNTER 2024-09-09 09:59 | Outpatient (CLI) | payer MEDICARE, SELFPAY ==
--- NOTE | ~2024-09-09 | US_ITS ---
Limited Abdominal Sonogram: Real-time sonographic imaging of the right upper quadrant was performed. Clinical History: Cirrhosis Findings: The liver appears heterogeneous with nodular contour, compatible cirrhosis. No focal mass or biliary dilatation evident. Main portal vein demonstrates normal direction of flow. The gallbladde r is partially distended, and appears normal with no definite evidence of gallstone or wall thickenin g. The common bile duct measures 4 mm. The visualized pancreas, aorta, and IVC are unremarkable. Impression: Cirrhotic morphology of the liver, as above. No focal mass seen. Reviewed, dictated and finalized at location M. ICE OBSERVER CHIEF Impression: Cirrhotic morphology of the liver, as above. No focal mass seen.
== END 2024-09-09 10:00 | disposition home or self-care (01) ==
PROVIDERS: PCP Internal Medicine
DX: K74.69 Other cirrhosis of liver (principal)
CPT/HCPCS: 36415; 76705; 80053; 82105; 82140; 83036; 85025; 85055; 85610

== ENCOUNTER 2024-09-09 16:14 | Outpatient (CLI) | payer MEDICARE, SELFPAY ==
[2024-09-09 17:13] LABS: Basophils Percent Auto 0.5 % (0.2-1.2); Eosinophils Absolute Auto 0.1 K/mm3 (0-0.3); Eosinophils Percent Auto 2.4 % (0-4.4); Hematocrit 38.5 % (42.0-52.0); Hemoglobin 13.3 g/dL (14.0-18.0); Immature Granulocyte Absolute 0.02 K/mm3 (0.00-0.031); Immature Granulocyte Percent A 0.5 % (0-0.5); Immature Platelet Fraction Pct 3.3 % (0.9-11.2); Lymphocytes Absolute Auto 0.96 K/mm3 (0.9-3.2); Lymphocytes Percent Auto 25.9 % (18.3-44.2); Mean Corpuscular HGB Conc 34.5 g/dl (32-36); Mean Corpuscular Hemoglobin 33.8 pg (26-34); Monocytes Absolute Auto 0.4 K/mm3 (0.1-0.6); Monocytes Percent Auto 11.1 % (2.6-8.5); Neutrophils Absolute Auto 2.2 K/mm3 (1.3-6.7); Neutrophils Percent Auto 59.6 % (45.5-73.1); Platelet Count Result 65 k/mm3 (150-375); Red Blood Count 3.93 M/mm3 (4.6-6.20); Red Cell Distribution Width 14.7 % (11.5-14.5); White Blood Count 3.7 K/mm3 (4.5-10.0)
[2024-09-09 17:20] LABS: Ammonia 101 umol/L (9-30)
[2024-09-09 17:21] LABS: Alanine Aminotransferase 43 U/L (6-50); Albumin Level 2.8 g/dL (3.5-5.1); Alkaline Phosphatase 115 U/L (38-126); Anion Gap 2 mmol/L (4-12); Aspartate Amino Transferase 45 U/L (17-59); Bilirubin,Total 3.3 mg/dL (0.2-1.3); Blood Urea Nitrogen 10 mg/dL (9-20); Calcium 8.3 mg/dL (8.4-10.2); Carbon Dioxide 22 mmol/L (22-30); Chloride 117 mmol/L (98-107); Estimated Glomerular Filt Rate > 60; Glucose 103 mg/dL (65-110); Potassium 3.6 mmol/L (3.4-5.0); Sodium 141 mmol/L (137-145)
[2024-09-09 17:22] LABS: INR 1.5; Prothrombin Time 18.6 Seconds (11.1-14.7)
[2024-09-09 18:43] LABS: Hemoglobin A1C 5.4 % (<5.7)
[2024-09-14 10:59] LABS: Alpha Fetoprotein Tumor Marker 3.1 ng/mL (<6.1)
== END 2024-09-09 16:15 | disposition home or self-care (01) ==
PROVIDERS: PCP Internal Medicine; Visit Provider Internal Medicine
DX: E11.9 Type 2 diabetes mellitus without complications (principal); K74.60 Unspecified cirrhosis of liver; D69.6 Thrombocytopenia, unspecified
CPT/HCPCS: 36415; 80053; 82105; 82140; 83036; 85025; 85055; 85610

== ENCOUNTER 2024-09-23 12:49 | Emergency (ER) | payer MEDICARE, SELFPAY ==
--- NOTE | ~2024-09-23 | XR_ITS ---
EXAMINATION: [id number] DATE: 09/23/2024 14:48 INDICATION: Right rib pain. Fall. TECHNIQUE: A frontal view of the chest and 2 views on 3 radiographs of the right ribs were obtained. COMPARISON: Chest single view 03/05/2021 FINDINGS: There is no pneumonia, pleural effusion, or pneumothorax. The heart size is normal. There a re multiple old healed right rib fractures. There are acute fractures of right fifth and sixth ribs. IMPRESSION: 1. Acute fractures of right fifth and sixth ribs. Reviewed, dictated and finalized at location A. WRAPPER
--- NOTE | ~2024-09-23 | XR_ITS ---
EXAMINATION: XR shoulder RT min 2V DATE: 09/23/2024 13:28 INDICATION: Right shoulder pain post fall TECHNIQUE: AP internally and externally rotated, AP oblique externally rotated and transscapular Y vi ews of the right shoulder were obtained. COMPARISON: None FINDINGS: Normal alignment. No fracture.Mild glenohumeral and moderate acromioclavicular osteoarthritis. Mild dystrophic calcification projecting over the middle facet of the greater tuberosity consistent with l ikely infraspinatus calcific tendinitis. Soft tissues are unremarkable. Mild blunting at the right co stophrenic angle which could represent atelectasis or scarring or very small right pleural effusion. IMPRESSION: Mild glenohumeral and moderate acromioclavicular osteoarthritis. No acute osseous abnormality. 2. Likely distal infraspinatus calcific tendinitis. Reviewed, dictated and finalized at location B. IAC TECH IMPRESSION: Mild glenohumeral and moderate acromioclavicular osteoarthritis. No acute osseo us abnormality. 2. Likely distal infraspinatus calcific tendinitis.
--- NOTE | 2024-09-23 12:54 | ED_ITS ---
HPI - Extremity Injury (Upper) General Chief Complaint: Extremity Injury, Upper Stated Complaint: FALL/LEFT ARM INJURY Time Seen by Provider: 09/23/24 12:54 Source: patient Mode of arrival: ambulatory Limitations: no limitations History of Present Illness HPI narrative: Patient is a 68-year-old male who presents with right shoulder and right rib pain after losing balance and falling last night. Patient also ripped back left thumb nail. Patient is currently on meloxicam and muscle relaxers. Patient is unable to take Tylenol due to cirrhosis. Patient states he is still able to move arm in all directions it is just painful. Patient reports pain in ribs under armpit are the most painful. Patient reports coughing makes pain worse. Denies any bruising Related Data Home Medications Medication Instructions Recorded Confirmed pantoprazole 20 mg tablet,delayed 20 mg PO QAM 10/22/22 09/23/24 release atorvastatin 40 mg tablet 40 mg PO DAILY 09/23/24 09/23/24 carvedilol 3.125 mg tablet 3.125 mg PO DAILY 09/23/24 09/23/24 dapagliflozin propanediol 10 mg 10 mg PO DAILY 09/23/24 09/23/24 tablet (Farxiga) desloratadine 5 mg tablet 5 mg PO DAILY 09/23/24 09/23/24 furosemide 20 mg tablet 20 mg PO DAILY 09/23/24 09/23/24 glipizide 5 mg tablet 5 mg PO DAILY 09/23/24 09/23/24 lisinopril 20 mg tablet 20 mg PO DAILY 09/23/24 09/23/24 meloxicam 7.5 mg tablet 7.5 mg PO DAILY 09/23/24 09/23/24 methocarbamol 500 mg tablet 500 mg PO DIRECTED 09/23/24 09/23/24 Allergies Allergy/AdvReac Type Severity Reaction Status Date / Time clindamycin Allergy Unknown Unknown Verified 09/23/24 13:06 gentamicin Allergy Unknown Unknown Verified 09/23/24 13:06 Macrolide Antibiotics Allergy Unknown Unknown Verified 09/23/24 13:06 neomycin Allergy Unknown Unknown Verified 09/23/24 13:06 vancomycin Allergy Unknown Unknown Verified 09/23/24 13:06 MYCINS Allergy Mild Unknown Uncoded 02/04/23 10:31 Review of Systems Review of Systems: All systems reviewed & are unremarkable except as noted in HPI and below Constitutional: Constitutional: Denies body ache(s), Denies chills, Denies fatigue, Denies fever(s), Denies headache(s), Denies malaise and Denies weakness Eyes: Eyes: Denies blurry vision, Denies irritation and Denies loss of vision ENT: Denies otalgia, Denies headache(s), Denies nasal discharge, Denies sinus pain and Denies sore throat Cardiovascular: Cardiovascular: Denies chest pain, Denies irregular heart rhythm and Denies dyspnea Respiratory: Respiratory: Denies dyspnea Gastrointestinal: Gastrointestinal: Denies abdominal pain, Denies melena, Denies hematochezia, Denies diarrhea, Denies nausea and Denies vomiting Musculoskeletal: Musculoskeletal: Reports back pain, Denies myalgias and Reports arthralgias Integumentary/Breasts: Skin/Breast: Denies pruritus and Denies rash Neurologic: Denies headache(s), Denies loss of vision and Denies weakness Psychiatric: Psychiatric: Reports no additional psychiatric complaints Endocrine: Endocrine: Denies fatigue PMFSH Past Medical History Medical History Hypertension Family History Family History Mother Cancer Diabetes mellitus Hypertension Father Cancer Heart disease Social History Social History Smoking status: Current every day smoker Tobacco type: cigarettes Alcohol intake: never Substance use type: marijuana Lack of Transportation: No Lack of Food: Never True Current Housing: I Have Housing Concerned About Future Housing: No Difficulty Paying Gas/Electric Bills: No Difficulty Paying for Meds: No Currently Unemployed: No Education: High School Diploma/GED Difficulty w/ Childcare or Family Care: No Living arrangements: with family Occupation/Education: retired Gender identity (if verbalized by the patient): Male Comments At time of signature, agree with nursing past medical, surgical, social and family history. There is no relevant family history pertinent to the presenting complaint. Exam Const: General: cooperative, healthy appearing, comfortable, no acute distress and well nourished Nutritional Appearance: well nourished Orientation/consciousness: patient oriented x3 Limitations: no limitations HENMT: Head: normal to inspection, normocephalic and atraumatic Ears: hearing grossly normal bilaterally and external ears normal Face/Nose/Sinus: Normal external nose present, normal facial exam and face symmetric Face and sinus: normal facial exam and face symmetric Mouth: Yes lip normal Eyes: General: appearance normal, both eyes and all related structures Alignment and Position: alignment normal and position normal Periorbital: periorbital findings normal Eyelids: eyelids normal Pupils: Equal, round and reactive pupils present EOM: EOMs intact bilaterally Neck: Neck: normal visual inspection, full ROM and supple Chest: Chest palpation & inspection: normal inspection of the chest and tenderness rib right anterior-axillary line involving the 5th rib and involving the 6th rib Resp: Effort & Inspection: normal respiratory effort and able to speak in complete sentences Auscultation: clear to auscultation bilaterally Cardio: Rate: regular rate Rhythm: regular rhythm Heart sounds: S1 mervat l heart sound present and S2 normal heart sound present GI: Inspection: normal to inspection Skin: General skin exam: normal color and no rashes or lesions noted Neuro: General: patient oriented x3 and moves all extremities Cranial nerves: Yes Equal, round and reactive pupils present Speech: normal speech Gait exam (Neuro): Normal gait present Extrem: General: normal to inspection, full ROM and no edema Right upper extremity: shoulder/upper arm normal to inspection, tenderness of the scapula and over the deltoid bursa and abnormal ROM pain with active ROM in ABduction a nd in extension; but not in ADduction and but not in flexion; no swelling, no abrasions, no ecchymosis and no deformity and elbow/forearm normal to inspection, normal ROM and distal pulses intact; no tenderness and no swelling Left upper extremity: hand normal capillary refill, neuromotor exam normal Details: wrist extension normal, thumb opposition normal, thumb IP flexion normal, thumb ADduction normal and fingers 2-5 ABduction normal, neurosensory exam normal Details: radial nerve sensory function normal, ulnar nerve sensory function normal, median nerve sensory function normal and digital nerve sensory function normal, tendon exam normal Location: of all digits Details: extensor tendon, flexor digitorum profundus and flexor digitorum superficialis, tenderness of the thumb involving the entire digit, normal ROM of fingers, no swelling and ecchymosis of the thumb involving the entire digit Hand/finger images: 1. Attachment point of nail. Rest of nail detached from the nail bed. No active bleeding Psych: Appearance: grossly normal and well kempt Mental Status: mental status grossly normal Speech and movement: Normal speech and movement present Affect: normal affect Attitude: cooperative Thought process: Normal thought process present Course Course Emergency Course: Patient is aware of diagnosis, understands and agrees to treatment plan. An ticipatory guidance given. Patient agrees to follow-up as directed and is aware of reasons to seek care at the emergency department. Portions of this record may have been created with voice recognition software Level of Care: Express Care Visit Vital Signs Vital signs: Reviewed MDM - Extremity Injury (Upper) MDM Narrative Medical decision making narrative: Exam findings show no acute concerns or changes; patient is non-toxic appearing and is in no distress.? Patient is appropriate for outpatient treatment and follow-up. Discharge instructions reviewed with patient, as well as provided in writing per nursing staff. The instructions also include specific and strict return/GO TO THE ER as well as f/u information. All questions have been answered, and the patient deny any further questions with discharge and discharge plan. Differential Diagnosis Differential diagnosis: Likely dislocation of shoulder, fracture of humerus, fra cture of clavicle and other (Shoulder sprain, arthritis rib fracture) Medical Records Attestation: I reviewed the patient's medical records. Imaging Data Radiologist's impression: EXAMINATION: XR shoulder RT min 2V DATE: 09/23/2024 13:28 INDICATION: Right shoulder pain post fall TECHNIQUE: AP internally and externally rotated, AP oblique externally rotated and transscapular Y views of the right shoulder were obtained. COMPARISON: None FINDINGS: Normal alignment. No fracture.Mild glenohumeral and moderate acromioclavicular osteoarthritis. Mild dystrophic calcification projecting over the middle facet of the greater tuberosity consistent with likely infraspinatus calcific tendi nitis. Soft tissues are unremarkable. Mild blunting at the right costophrenic angle which could represent atelectasis or scarring or very small right pleural effusion. IMPRESSION: Mild glenohumeral and moderate acromioclavicular osteoarthritis. No acute osseous abnormality. 2. Likely distal infraspinatus calcific tendinitis. Discharge Plan Discharge Clinical Impression: Avulsion of nail Shoulder sprain Qualifiers: Encounter type: initial encounter Shoulder sprain type: unspecified sprain Laterality: right Qualified Code(s): S43.401A - Unspecified sprain of right shoulder joint, initial encounter Right rib fracture Qualifiers: Encounter type: initial encounter Rib fracture type: multiple ribs Fracture type: closed Qualified Code(s): S22.41XA - Multiple fractures of ribs, right side, initial encounter for closed fracture Patient Disposition: Home, Self-Care Condition: Stable Instructions: Osteoarthritis (ED), Rib Fracture (ED), Nail Avulsion (ED) Additional Instructions: X-ray confirmed fracture of ribs Pain may get worse for a week and last for up to eight weeks.The most important thing is to get your pain under control. Breathing exercises will not be effective unless your pain is controlled. Take your pain relieving medications as prescribed by your doctor, and continue to speak with your primary care doctor about maintaining your pain relief. Strenuous activities should be avoided for the first 3-4 weeks, after which you can commence physical activity as pain allows. If the pain is increasing you may be doing too much. Cough and deep breath at least 10 times per hour. Try holding a cushion firmly against the painful site when you lee and cough to decrease the pain. Sit out of bed and keep moving as much as you feel comfortable. This will decrease the risk of developing lung complications. Soak nail in warm soapy water 2 times a day and keep covered at all times Xray showed no fracture of shoulder. Minimize activities that aggravate the condition The RICE protocol. Follow the RICE protocol as soon as possible after your injury:. Ice should be immediately applied to keep the swelling down. It can be used for 20 to 30 minutes, three or four times daily. Do not apply ice directly to your s kin. Elevate your on above the level of your heart as often as possible during the first 48 hours. Medication: Nonsteroidal anti-inflammatory drugs (NSAIDs) such as meloxicam can help control pain and swelling. Because they improve function by both reducing swelling and controlling pain, they are a better option for mild sprains than narcotic pain medicines. Please schedule a follow-up visit with your personal physician for further evaluation and treatment within 1week OR If your symptoms persist, change or worsen significantly before you can contact your personal physician then please, without delay, go to the emergency department for further evaluation. Your blood pressure was elevated above 120/80 today at Urgent Care. This puts you above the threshold for follow up visit with a primary care provider. High blood pressure does not usually cause any symptoms, however it may lead to kidney failure, stroke, heart disease just to name a few if untreated . Many people are anxious when seeing a provider or nurse. As a result, you are not diagnosed with hypertension at this time unless your blood pressure is persistently high at two office visits at least one week apart. Some things that can help lower blood pressure are lifestyle modifications, such as light exercise, decreased salt in diet, and weight loss. It is important to follow up with a PCP about this within 1 week. Prescriptions: No Action atorvastatin 40 mg tablet 40 mg PO DAILY methocarbamol 500 mg tablet 500 mg PO DIRECTED lisinopril 20 mg tablet 20 mg PO DAILY carvedilol 3.125 mg tablet 3.125 mg PO DAILY meloxicam 7.5 mg tablet 7.5 mg PO DAILY desloratadine 5 mg tablet 5 mg PO DAILY furosemide 20 mg tablet 20 mg PO DAILY glipizide 5 mg tablet 5 mg PO DAILY dapagliflozin propanediol [Farxiga] 10 mg tablet 10 mg PO DAILY pantoprazole 20 mg tablet,delayed release (DR/EC) 20 mg PO QAM Follow-up/Referrals: ,Juanpablo Muller MD [Primary Care Provider] - 3 Days Time of Disposition: 15:32
[2024-09-23 13:04] VITALS: BP 162/84; PULSE 68; RESP 16; TEMP 36.3; O2SAT 99
[2024-09-23 13:06] VITALS: BP 162/84; PULSE 68; RESP 16; TEMP 36.3; O2SAT 99
[2024-09-23] MEDS: TETANUS,DIPHTHERIA,AC PERTUSSIS ADULT (0.5 ML) BOOSTRIX IM (14:52)
== END 2024-09-23 15:34 | disposition home or self-care (01) ==
PROVIDERS: Emergency Provider Nurse Practitioner Family; PCP Internal Medicine
DX: S61.102A Unspecified open wound of left thumb with damage to nail, initial encounter (principal); W19.XXXA Unspecified fall, initial encounter; S43.401A Unspecified sprain of right shoulder joint, initial encounter; S22.41XA Multiple fractures of ribs, right side, initial encounter for closed fracture; Z23 Encounter for immunization; K74.60 Unspecified cirrhosis of liver; I10 Essential (primary) hypertension; F17.210 Nicotine dependence, cigarettes, uncomplicated; F12.90 Cannabis use, unspecified, uncomplicated
CPT/HCPCS: 71101; 73030; 90471; 90715; 99214; G0463

== ENCOUNTER 2024-10-03 17:31 | Emergency (ER) | payer MEDICARE, SELFPAY ==
--- NOTE | ~2024-10-03 | CT_ITS ---
EXAMINATION: CT abdomen pelvis w con DATE: 10/03/2024 21:59 INDICATION: hx cirrhosis, new AMS, recent trauma TECHNIQUE: Computed tomography (CT) of the abdomen and pelvis was performed with 100 mL Omnipaque-350 intravenous contrast. Automated exposure control and iterative reconstruction technique were employe d. The dose-length product was 1269.98 mGy-cm. COMPARISON: 03/21/2021; ultrasound abdomen 09/09/2024. FINDINGS: Lower thorax: Unremarkable Liver: Small. Nodular border. Biliary/Gallbladder: Small fluid-filled structure in the gallbladder fossa, may represent a gallbladd er that is partially contracted, however prior CT findings of acute cholecystitis with large gallston es that are no longer present suggests there may have been interval cholecystectomy. Small calcificat ions in the region of the gallbladder neck may represent residual gallstones or calcified surgical ma terial. No intrahepatic duct dilation. Common bile duct measures 8 mm, without obstructing stone or m ass identified. Pancreas: No mass or duct dilation. Spleen: Normal. Adrenals:No mass. Kidneys: Multiple bilateral indeterminate density renal lesions stable to slightly larger than the pr ior study and simple cysts in the prior examination and therefore likely represent hemorrhagic or pro teinaceous cysts. Multiple additional subcentimeter renal lesions that are too small to characterize. No obstructing calcification or hydronephrosis. GI tract: Mild distal esophageal and moderate antral wall edema. No small or large bowel dilation. No rmal appendix. Mesentery/Peritoneum: Mild mesenteric edema. Upper abdominal varices. Retroperitoneum: No mass. Pelvis: The urinary bladder is nearly empty. Normal prostate. Soft Tissues: Small fat-containing uncomplicated right inguinal hernia. Mild diffuse body wall edema Bones: No acute osseous finding. Uncomplicated appearing L5-S1 fusion with interbody device. IMPRESSION: Mild esophagitis and moderate antral gastritis. Cirrhosis with portal hypertension. Contracted gallbladder versus gallbladder remnant or other chronic postsurgical collection. Correlate with surgical history. Small retained gallstones in the gallbladder neck versus dystrophic calcifica tion. Mild common bile duct dilation, correlate with biliary labs. Reviewed, dictated and finalized at location K. RAL GREETER IMPRESSION: Mild esophagitis and moderate antral gastritis. Cirrhosis with portal hypertension. Contracted gallbladder versus gallbladder remnant or other chronic postsurgical collection. Correlate with surgical history. Small retained gallstones in the gallbladder neck versus dystrophic calcification. Mild common bile duct dilation, correlate with biliary labs.
--- NOTE | ~2024-10-03 | CT_ITS ---
EXAMINATION: CT brain wo con DATE: 10/03/2024 21:58 INDICATION: weakness . TECHNIQUE: Computed tomography (CT) of the head was performed without intravenous contrast. The mA wa s adjusted according to patient size. Iterative reconstruction technique was employed. The dose-lengt h product was 756.67 mGy-cm. COMPARISON: None. FINDINGS: No acute intracranial hemorrhage or extra-axial fluid collection. No hydrocephalus, mass, or herniation. No acute ischemic infarct. Unremarkable dural venous sinus attenuation. No acute osseous abnormality. Small retention cyst/polyp in the left inferior maxillary sinus, mild somewhat nodular mucosal thicke alexei in the ethmoid sinuses, the remaining aerated spaces are clear. Mild atrophy and moderate chronic white matter change. Atherosclerotic intracranial calcification. IMPRESSION: No acute intracranial process. Reviewed, dictated and finalized at location K. ICE HOME CARE COORDINATOR
--- NOTE | ~2024-10-03 | XR_ITS ---
EXAMINATION: XR chest 1V portable Exam Date/Time: 10/03/2024 20:55 BED LASTER HISTORY: weakness Comparison: 03/05/2021. RESULT: Lines, tubes, and devices: None. Lungs and pleura: Minimal bibasilar atelectasis/scar, otherwise clear. Cardiomediastinal silhouette: Stable. Chronic mild left hemidiaphragm elevation. Other: No acute osseous or upper abdominal finding. IMPRESSION: No acute cardiopulmonary process. Reviewed, dictated and finalized at location K. LASTER
[2024-10-03 17:47] VITALS: BP 154/64; PULSE 70; RESP 14; TEMP 36.7; O2SAT 97
[2024-10-03 20:38] VITALS: BP 156/80; PULSE 66; RESP 14; TEMP 36.9; O2SAT 96
--- NOTE | 2024-10-03 20:38 | PC.NURSE ---
patient bibems, patient reports to live with his in [facility]. Patient has a complaint of weakness and confusion x's 2 days. Patient appears unkempt and possible lethargic.
--- NOTE | 2024-10-03 20:42 | ECG_ITS ---
Test Date: 2024-10-03 20:50:08 Measurements Intervals [place] Rate: 69 P: 49 [place]: 164 QRS: -22 QRSD: 131 T: 20 QT: 443 QTc: 475 Interpretive Statements SINUS RHYTHM RIGHT BUNDLE BRANCH BLOCK BASELINE ARTIFACT- I, AVF, V2 ABNORMAL ECG No previous ECG available for comparison Electronically Signed On 10-03-2024 21:59:15 AUTOMOBILE RENTAL CLERK by Lam Rosales D.O.
[2024-10-03] MEDS: LACTATED RINGERS 1,000 ML 999 ML IV CONT (20:54)
--- NOTE | 2024-10-03 21:01 | ED_ITS ---
HPI - Weakness General Chief complaint: Weakness Stated complaint: weakness Time Seen by Provider: 10/03/24 20:42 History of Present Illness HPI Narrative: 68-year-old male with a past medical history significant for cirrhosis, hypertension, diabetes. Today presents with his significant other for concerns of mental status changes. Patient has been having transient mental status portillo es since April of this year and has been seen by specialist over at [facility] including a liver specialist for his cirrhosis. Patient's states that he gets intermittent episodes of delirium, ataxia, tremors, inability to walk and confusion that last several days at time and resolve spontaneously. When asked about any history of hepatic encephalopathy family is not able to provide any details about this but they state he is not anything like rifaximin or lactulose. He has history of drinking in the past but presently no alcohol intake. No reported ingestions or intoxicants. Patient did have a injury about 10 days prior where he fell on the sidewalk in cracked h is right 5th and 6th rib when he went to urgent care to discover this. No reported head trauma. For last 4 days patient has been acting incoherent, unable walk, trembling and unable to follow commands. at bedside states this is exactly how he usually presents with his transient mental status changes. Patient is presently awake and attempts to answer questions but is very incoherent. He will follow commands easily. Does not appear intoxicated without any nystagmus but is ataxic in the arms. Has bruising in both arms but no obvious head injury or neck injury. Related Data Home Medications Medication Instructions Recorded Confirmed pantoprazole 20 mg tablet,delayed 20 mg PO [facility] 10/22/22 09/23/24 release atorvastatin 40 mg tablet 40 mg PO DAILY 09/23/24 09/23/24 carvedilol 3.125 mg tablet 3.125 mg PO DAILY 09/23/24 09/23/24 dapagliflozin propanediol 10 mg 10 mg PO DAILY 09/23/24 09/23/24 tablet (Farxiga) desloratadine 5 mg tablet 5 mg PO DAILY 09/23/24 09/23/24 furosemide 20 mg tablet 20 mg PO DAILY 09/23/24 09/23/24 glipizide 5 mg tablet 5 mg PO DAILY 09/23/24 09/23/24 lisinopril 20 mg tablet 20 mg PO DAILY 09/23/24 09/23/24 meloxicam 7.5 mg tablet 7.5 mg PO DAILY 09/23/24 09/23/24 methocarbamol 500 mg tablet 500 mg PO DIRECTED 09/23/24 09/23/24 Allergies Allergy/AdvReac Type Severity Reaction Status Date / Time clindamycin Allergy Unknown Unknown Verified 09/23/24 13:06 gentamicin Allergy Unknown Unknown Verified 09/23/24 13:06 Macrolide Antibiotics Allergy Unknown Unknown Verified 09/23/24 13:06 neomycin Allergy Unknown Unknown Verified 09/23/24 13:06 vancomycin Allergy Unknown Unknown Verified 09/23/24 13:06 MYCINS Allergy Mild Unknown Uncoded 02/04/23 10:31 Review of Systems Review of Systems: As reviewed above in the [facility] Past Medical History Medical History Hypertension Family History Family History Mother Cancer Diabetes mellitus Hypertension Father Cancer Heart disease Social History Social History Smoking status: Current every day smoker Tobacco type: cigarettes Alcohol intake: never Substance use type: marijuana Lack of Transportation: No Lack of Food: Never True Current Housing: I Have Housing Concerned About Future Housing: No Difficulty Paying Gas/Electric Bills: No Difficulty Paying for Meds: No Currently Unemployed: No Education: High School Diploma/GED Difficulty w/ Childcare or Family Care: No Living arrangements: with family Occupation/Education: retired Gender identity (if verbalized by the patient): Male Exam Narrative: GENERAL: Chronically ill-appearing, not in any acute distress, incoherent but follows commands easily, ataxic HEAD: [Normocephalic, atraumatic.] EYES: [PERRLA and EOMI.] ENT: Nares clear, no rhinorrhea or epistaxis. Mucous membranes moist. NECK: Supple. Negative meningismal signs. No midline tenderness or deformity CHEST: [Clear to auscultation. No respiratory distress.] HEART: [Regular rate and rhythm]. No murmur heard. [Normal peripheral pulses.] ABDOMEN: [Soft, nondistended], [nontender], [No rigidity or guarding] EXTREMITIES: Normal range of motion. [No edema.] SKIN: Slightly jaundiced in color, worse per . Warm and dry with scattered bruising in the arms and legs without any focal areas of obvious trauma NEURO: Moves his arms and legs symmetrically and follows commands easily but is incoherent, not able to speak in any clear sentences, ataxia is noted profoundly in the bilateral upper extremities but not the lower extremities. No nystagmus, extraocular movements are full, no facial asymmetries. No hyperreflexia noted. some stiffness and rigidity when moving his arms and legs but able to range them passively and actively. No clonus. Asterixis evident bilaterally. PSYCH: Appropriate mood Course Vital Signs Vital signs: Vital Signs Temperature 36.7 C 10/03/24 17:47 Pulse Rate 70 10/03/24 17:47 Respiratory Rate 14 10/03/24 17:47 Blood Pressure 154/64 H 10/03/24 17:47 Pulse Oximetry 97 10/03/24 17:47 Temperature 36.9 C 10/03/24 20:38 Pulse Rate 71 10/04/24 03:56 Respiratory Rate 14 10/04/24 03:56 Blood Pressure 134/74 10/04/24 03:56 Pulse Oximetry 94 10/04/24 03:56 MDM - Weakness MDM Narrative Medical decision making narrative: 68-year-old male with a past medical history significant for liver cirrhosis, hypertension, diabetes. Presents today with 4 days of altered mental status, stupor, ataxia, incoherence and mental status changes. His present at bedside provides the majority of the collateral formation is patient is presently incoherent not able to provides history. He has had similar episodes like this previously and been ongoing in waves since this summer in April. Has been seen by specialist including hepatology over at [facility] according to the . Not presently on any rifaximin or lactulose but does note to have a high ammonia level on recent labs. Patient did have a ground level fall without any clear etiology over a week ago and did have some rib fractures. No clear head trauma. He does have some scattered bruising in his arms and legs. He is slightly jaundiced in appearance. Neuro exam shows that he follows commands easily and is awake but not able to answer questions and is incoherent. No nystagmus but does have very severe ataxia in the arms. No facial asymmetry, cranial nerves are otherwise intact, negative meningismal signs. No hyperreflexia or clonus but is rigid in the arms and legs with movement. Vital signs are reassuring without any significant blood pressure elevations, no hypoxia, tachycardia, fever. Differential is broad but combined with his past medical history including cirrhosis hypertension diabetes does include hepatic encephalopathy, metabolic encephalopathy, intracranial process such as a stroke, brain bleed from his recent trauma, electrolyte derangements, infectious process such as pneumonia, urinary infection. Less likely intracranial infection given the lack of fever and cyclical nature of his sympto ms and he has no meningismal signs. Abdomen is soft and nondistended but with a history of cirrhosis could be intraperitoneal process as well or even cholangitis. A very broad workup needs to be conducted here in the emergency department including a CT scan of the head and abdomen and pelvis in addition to a chest x-ray, urinalysis, urine drug screen, toxicological panels, electrolyte panel, ammonia level. EKG ordered. He was given a fluid bolus here in the emergency department while workup underway. Laboratory studies showed no leukocytosis, anemia. Platelets of 109 which is his baseline thrombocytopenia. PT of 17.1 also chronic, no INR elevations. CBC shows normal electrolytes, BUN 15 creatinine 1.5 in line with his normal levels. Glucose 113. New bilirubin elevation of 3.3, alk-phos mildly elevated 155. ALT and AST within normal limits. Ammonia also elevated at 101 several weeks ago and 62 still elevated today. TSH normal at 1.5. Urinalysis shows no signs of infection but does have urobilinogen. Tox panel negative aside from cannabinoids. Negative alcohol salicylate and Tylenol levels. Chest x-ray was independently reviewed by myself and I do not appreciate any pneumothorax, pneumonia or consolidations. Confirmed by radiology with no acute cardiopulmonary process. CT head also without any acute findings. CT of the abdomen and pelvis shows chronic gallbladder changes with a contracted gallbladder mild CBD dilation at 8 mm but no cholangitis or cholecystitis, no pericholecystic fluid. Cirrhosis of the liver seen with portal hypertension evident. Given patient's bilirubin elevations, skin findings of jaundice, asterixis and altered mentation clinically he is having hepatic encephalopathy with no other alternative explanations or acute findings. Will initiate treatment with p.o. lactulose and patient will need transfer to a higher level of care center back to the [facility] where his hepatology team is located. Family was agreeable with this plan of care going forward. I did call the transfer center and relayed the information to them. Awaiting call back with hospitalist or hepatology team to discuss. Spoke to the hospitalist over at [facility] who accepted the patient pending a bed availability. We went over patient's imaging studies, laboratory assessment, CT scan results and plan of care going forward. He has a history of encephalopathic episodes and was seen at their facilities previously for this. Confirmed not to be on any kind medications such as rifaximin or lactulose. Patient was re-evaluated frequently admitted hemodynamically stable here in the emergency department but no significant interval change in his clinical picture. Patient is stable for transfer at this time. Accepting physician is Dr. Andres at [facility]. Patient will remain here in the emergency department until bed assignment and ambulance transfer. Medical Records Attestation: I reviewed the patient's medical records. Lab Data Attestation: I reviewed the patient's lab results. 10/03/24 20:56 10/03/24 20:56 Labs: Lab Results 10/03/24 10/03/24 10/03/24 Range/Units 20:56 21:18 21:24 WBC 8.0 (4.5-10.0) K/mm3 RBC 4.15 L (4.6-6.20) M/mm3 Hgb 14.1 (14.0-18.0) g/dL Hct 40.6 L (42.0-52.0) % MCV 97.8 (80-100) fl MCH 34.0 (26-34) pg MCHC 34.7 (32-36) g/dl RDW 15.4 H (11.5-14.5) % Plt Count 109 L D (150-375) k/mm3 MPV 10.1 (7.4-10.4) fl Immature Gran % (Auto) 0.1 (0-0.5) % Neut % (Auto) 66.3 (45.5-73.1) % Lymph % (Auto) 19.9 (18.3-44.2) % [place] % (Auto) 11.5 H (2.6-8.5) % Eos % (Auto) 1.4 (0-4.4) % Baso % (Auto) 0.8 (0.2-1.2) % Lymph # (Auto) 1.59 (0.9-3.2) K/mm3 [place] # (Auto) 0.9 H (0.1-0.6) K/mm3 Eos # (Auto) 0.1 (0-0.3) K/mm3 Baso # (Auto) 0.1 (0.0-0.1) K/mm3 Abs Immat Gran (auto) 0.01 (0.00-0.031) K/mm3 Absolute Neuts (auto) 5.3 (1.3-6.7) K/mm3 Absolute Nucleated RBC 0.000 (0.0-0.012) K/mm3 Nucleated RBC % 0.0 (0.0-0.2) % % Immature Plt Fraction 2.6 (0.9-11.2) % PT 17.1 H (11.1-14.7) Seconds INR 1.4 APTT 34.3 (22.3-36.8) Seconds Sodium 139 (137-145) mmol/L Potassium 4.1 (3.4-5.0) mmol/L Chloride 107 (98-107) mmol/L Carbon Dioxide 30 (22-30) mmol/L Anion Gap 2 L (4-12) mmol/L BUN 15 D (9-20) mg/dL Creatinine 0.50 L (0.7-1.3) mg/dL Estim Creat Clear Calc 113 ml/min Estimated GFR > 60 (59 - ) Glucose 113 H (65-110) mg/dL POC Capillary Glucose (65-105) mg/dl Calcium 8.6 (8.4-10.2) mg/dL Total Bilirubin 3.3 H (0.2-1.3) mg/dL AST 49 (17-59) U/L ALT 31 (6-50) U/L Alkaline Phosphatase 155 H (38-126) U/L Ammonia 62 H (9-30) umol/L Total Protein 6.0 L (6.3-8.2) g/dL Albumin 3.2 L (3.5-5.1) g/dL TSH (Reflex) 1.520 (0.465-4.68) uIU/mL Urine Color Dark yellow (Yellow) Urine Appearance Clear (Clear) Urine pH 6.5 (5.0-9.0) Ur Specific [place] 1.039 H (1.001-1.035) Urine Protein Trace (Negative) mg/dL Urine Glucose (UA) 3+ H (Negative) mg/dL Urine Ketones Trace H (Negative) mg/dL Ur Blood (Man) Negative (Negative) Urine Nitrate Negative (Negative) Urine Bilirubin 1+ H (Negative) Urine Urobilinogen >=8.0 H (<2.0) mg/dL Add Ur Microanalysis Reviewed Leukocyte Esterase Rfl Negative (Negative) CRISTY/UL Urine RBC 0-2 (0-2) /hpf Urine WBC 0-5 (0-3) /hpf Ur Squamous Epith Cells Occasional (Few) /hpf Urine Bacteria None seen /hpf Urine Casts 3-5 Salicylates < 1.0 L (2-20) mg/dL Urine Opiates Screen Negative (Negative) Urine Methadone Screen Negative (Negative) Acetaminophen < 10 L (10-30) ug/mL Ur Barbiturates Screen Negative (Negative) Ur Phencyclidine Scrn Negative (Negative) Ur Amphetamine Screen Negative (Negative) U Benzodiazepines Scrn Negative (Negative) Urine Cocaine Screen Negative (Negative) U Cannabinoids Screen Positive A (Negative) Ethyl Alcohol < 10 (<10) mg/dL 10/03/24 Range/Units 21:28 WBC (4.5-10.0) K/mm3 RBC (4.6-6.20) M/mm3 Hgb (14.0-18.0) g/dL Hct (42.0-52.0) % MCV (80-100) fl MCH (26-34) pg MCHC (32-36) g/dl RDW (11.5-14.5) % Plt Count (150-375) k/mm3 MPV (7.4-10.4) fl Immature Gran % (Auto) (0-0.5) % Neut % (Auto) (45.5-73.1) % Lymph % (Auto) (18.3-44.2) % [place] % (Auto) (2.6-8.5) % Eos % (Auto) (0-4.4) % Baso % (Auto) (0.2-1.2) % Lymph # (Auto) (0.9-3.2) K/mm3 [place] # (Auto) (0.1-0.6) K/mm3 Eos # (Auto) (0-0.3) K/mm3 Baso # (Auto) (0.0-0.1) K/mm3 Abs Immat Gran (auto) (0.00-0.031) K/mm3 Absolute Neuts (auto) (1.3-6.7) K/mm3 Absolute Nucleated RBC (0.0-0.012) K/mm3 Nucleated RBC % (0.0-0.2) % % Immature Plt Fraction (0.9-11.2) % PT (11.1-14.7) Seconds INR APTT (22.3-36.8) Seconds Sodium (137-145) mmol/L Potassium (3.4-5.0) mmol/L Chloride (98-107) mmol/L Carbon Dioxide (22-30) mmol/L Anion Gap (4-12) mmol/L BUN (9-20) mg/dL Creatinine (0.7-1.3) mg/dL Estim Creat Clear Calc ml/min Estimated GFR (59 - ) Glucose (65-110) mg/dL POC Capillary Glucose 97 (65-105) mg/dl Calcium (8.4-10.2) mg/dL Total Bilirubin (0.2-1.3) mg/dL AST (17-59) U/L ALT (6-50) U/L Alkaline Phosphatase (38-126) U/L Ammonia (9-30) umol/L Total Protein (6.3-8.2) g/dL Albumin (3.5-5.1) g/dL TSH (Reflex) (0.465-4.68) uIU/mL Urine Color (Yellow) Urine Appearance (Clear) Urine pH (5.0-9.0) Ur Specific [place] (1.001-1.035) Urine Protein (Negative) mg/dL Urine Glucose (UA) (Negative) mg/dL Urine Ketones (Negative) mg/dL Ur Blood (Man) (Negative) Urine Nitrate (Negative) Urine Bilirubin (Negative) Urine Urobilinogen (<2.0) mg/dL Add Ur Microanalysis Leukocyte Esterase Rfl (Negative) CRISTY/UL Urine RBC (0-2) /hpf Urine WBC (0-3) /hpf Ur Squamous Epith Cells (Few) /hpf Urine Bacteria /hpf Urine Casts Salicylates (2-20) mg/dL Urine Opiates Screen (Negative) Urine Methadone Screen (Negative) Acetaminophen (10-30) ug/mL Ur Barbiturates Screen (Negative) Ur Phencyclidine Scrn (Negative) Ur Amphetamine Screen (Negative) U Benzodiazepines Scrn (Negative) Urine Cocaine Screen (Negative) U Cannabinoids Screen (Negative) Ethyl Alcohol (<10) mg/dL Imaging Data Attestation: I personally reviewed and interpreted this imaging study as follows: My impression: Impressions Chest X-Ray 10/03/24 21:15 IMPRESSION: No acute cardiopulmonary process. Head CT 10/03/24 21:58 IMPRESSION: No acute intracranial process. Abdomen/Pelvis CT 10/03/24 22:00 IMPRESSION: Mild esophagitis and moderate antral gastritis. Cirrhosis with portal hypertension. Contracted gallbladder versus gallbladder remnant or other chronic postsurgical collection. Correlate with surgical history. Small retained gallstones in the gallbladder neck versus dystrophic calcification. Mild common bile duct dilation, correlate with biliary labs. ECG Data EKG #1: Attestation: I personally reviewed and interpreted this ECG as follows: ECG completion date: 10/03/24 ECG completion time: 20:50 Prior ECG tracings: not available for review Interpretation: Leftward deviated axis, slightly widened QRS with a right bundle branch block but no ST segment elevations, depressions or inversions. No signs of acute ischemic evidence, normal rate rhythm, QTC 475, QRS 131, SC 164 all within normal limits. No previous EKG for comparison purposes EKG Interpretation: normal rate, sinus rhythm, no ST changes, RBBB and normal QT Critical Care Time Critical Care Time Critical Care Time: Yes Total Critical Care Time: 60 Discharge Plan Discharge Clinical Impression: Acute hepatic encephalopathy, Elevated bilirubin, Acute alteration in mental status, Jaundice, Cirrhosis, H/O portal hypertension Patient Disposition: Acute Care Hospital Condition: Stable Prescriptions: No Action atorvastatin 40 mg tablet 40 mg PO DAILY methocarbamol 500 mg tablet 500 mg PO DIRECTED lisinopril 20 mg tablet 20 mg PO DAILY carvedilol 3.125 mg tablet 3.125 mg PO DAILY meloxicam 7.5 mg tablet 7.5 mg PO DAILY desloratadine 5 mg tablet 5 mg PO DAILY furosemide 20 mg tablet 20 mg PO DAILY glipizide 5 mg tablet 5 mg PO DAILY dapagliflozin propanediol [Farxiga] 10 mg tablet 10 mg PO DAILY pantoprazole 20 mg tablet,delayed release (DR/EC) 20 mg PO QAM Follow-up/Referrals: Turkmen,Juanpablo Muller MD [Primary Care Provider] - Time of Disposition: 03:30
[2024-10-03 21:03] LABS: Basophils Absolute Auto 0.1 K/mm3 (0.0-0.1); Basophils Percent Auto 0.8 % (0.2-1.2); Eosinophils Absolute Auto 0.1 K/mm3 (0-0.3); Eosinophils Percent Auto 1.4 % (0-4.4); Hematocrit 40.6 % (42.0-52.0); Hemoglobin 14.1 g/dL (14.0-18.0); Immature Granulocyte Absolute 0.01 K/mm3 (0.00-0.031); Immature Granulocyte Percent A 0.1 % (0-0.5); Immature Platelet Fraction Pct 2.6 % (0.9-11.2); Lymphocytes Absolute Auto 1.59 K/mm3 (0.9-3.2); Lymphocytes Percent Auto 19.9 % (18.3-44.2); Mean Corpuscular HGB Conc 34.7 g/dl (32-36); Mean Corpuscular Volume 97.8 fl (80-100); Mean Platelet Volume 10.1 fl (7.4-10.4); Monocytes Absolute Auto 0.9 K/mm3 (0.1-0.6); Monocytes Percent Auto 11.5 % (2.6-8.5); Neutrophils Absolute Auto 5.3 K/mm3 (1.3-6.7); Neutrophils Percent Auto 66.3 % (45.5-73.1); Platelet Count Result 109 k/mm3 (150-375); Red Blood Count 4.15 M/mm3 (4.6-6.20); Red Cell Distribution Width 15.4 % (11.5-14.5)
[2024-10-03 21:11] LABS: Alanine Aminotransferase 31 U/L (6-50); Albumin Level 3.2 g/dL (3.5-5.1); Alkaline Phosphatase 155 U/L (38-126); Anion Gap 2 mmol/L (4-12); Aspartate Amino Transferase 49 U/L (17-59); Bilirubin,Total 3.3 mg/dL (0.2-1.3); Blood Urea Nitrogen 15 mg/dL (9-20); Calcium 8.6 mg/dL (8.4-10.2); Carbon Dioxide 30 mmol/L (22-30); Chloride 107 mmol/L (98-107); Estimated CRCL calculation 113 ml/min; Estimated Glomerular Filt Rate > 60; Glucose 113 mg/dL (65-110); Potassium 4.1 mmol/L (3.4-5.0); Sodium 139 mmol/L (137-145)
[2024-10-03 21:31] LABS: Glucose Point of Care 97 mg/dl (65-105)
[2024-10-03 21:36] LABS: Ammonia 62 umol/L (9-30)
[2024-10-03 21:47] LABS: Amphetamine Screen Urine Negative (Negative); Barbiturate Screen Urine Negative (Negative); Benzodiazepines Screen Urine Negative (Negative); Cannabinoid Screen Urine Positive (Negative); Cocaine Screen Urine Negative (Negative); Methadone Screen Urine Negative (Negative); Opiate Screen Urine Negative (Negative); Phencyclidine Screen Urine Negative (Negative)
[2024-10-03 21:50] LABS: Add Urine Microscopic? YES; Appearance Urine Clear (Clear); Bacteria Urine None Seen /hpf; Bilirubin Urine 1+ (Negative); Blood Urine Negative (Negative); Color Urine Dark Yellow (Yellow); Glucose Urine UA 3+ mg/dL (Negative); Ketones Urine Trace mg/dL (Negative); Leukocyte Esterase Ur Negative LEU/UL (Negative); Need Manual Microscopic Reviewed; Nitrate Urine Negative (Negative); Protein Urine Trace mg/dL (Negative); RBC Urine 0-2 /hpf (0-2); Specific Grav Ur 1.039 (1.001-1.035); Squamous Epithelial Cell Urine Occasional /hpf (Few); Urobilinogen Urine >=8.0 mg/dL (<2.0); WBC Urine 0-5 /hpf (0-3); pH Urine 6.5 (5.0-9.0)
[2024-10-03 21:55] LABS: INR 1.4; Prothrombin Time 17.1 Seconds (11.1-14.7)
[2024-10-03 21:57] LABS: Partial Thromboplastin Time 34.3 Seconds (22.3-36.8)
[2024-10-03 21:59] LABS: Acetaminophen < 10 ug/mL (10-30); Ethanol < 10 mg/dL (<10); Salicylate < 1.0 mg/dL (2-20)
[2024-10-03] MEDS: LACTULOSE 20 GM/30 ML UDC PO (22:38)
[2024-10-03 23:04] VITALS: BP 145/73; PULSE 72; RESP 18; O2SAT 97
[2024-10-04] VITALS (78 sets, daily range): BP systolic 128–167; BP diastolic 55–115; PULSE 67–86; RESP 10–23; TEMP 36.6; O2SAT 93–100
--- NOTE | 2024-10-04 03:59 | PC.NURSE ---
This patient continues to rest on ER stretcher 8. Patients at bedside. Patient is awaiting transfer acceptance to another facility for higher lever of care.
--- NOTE | 2024-10-04 05:03 | PC.NURSE ---
patient voided 350 at this time. patient linens changed and new sarthak placed. room cleaned
--- NOTE | 2024-10-04 08:24 | PC.NURSE ---
breakfast ordered at this time
--- NOTE | 2024-10-04 09:08 | PC.NURSE ---
Called [facility] transfer center. still waiting on bed to become available for him. accepting doctor is Dr. Galicia
--- NOTE | 2024-10-04 09:27 | PC.NURSE ---
[facility] transfer center called for update, pt is still on the waiting list, no beds at this time.
--- NOTE | 2024-10-04 19:56 | PC.NURSE ---
this rn assumed care of patient. this rn took patient report from KENYA Galvan.
--- NOTE | 2024-10-04 21:31 | ECG_ITS ---
Test Date: 2024-10-04 21:35:24 Measurements Intervals [place] Rate: 77 P: 38 WY: 154 QRS: -27 QRSD: 143 T: 16 QT: 460 QTc: 524 Interpretive Statements SINUS RHYTHM BORDERLINE LEFT AXIS DEVIATION [QRS AXIS < -20] RIGHT BUNDLE BRANCH BLOCK [120+ ms QRS DURATION, UPRIGHT V1, 40+ ms S IN I/aVL/V4/V5/V6] ABNORMAL ECG Electronically Signed On 10-05-2024 09:00:54 CONSUMER ANALYST by Hussain Rodriguez M.D.
--- NOTE | 2024-10-04 22:58 | PC.NURSE ---
this rn gave patient update/ report to Tammy at [facility] transfer center.
[2024-10-05] VITALS (13 sets, daily range): BP systolic 152–162; BP diastolic 74–90; PULSE 65–78; RESP 11–22; TEMP 36.4–36.6; O2SAT 92–99
[2024-10-05] MEDS: diphenhydrAMINE HCl CAP 25 MG CAPSULE 50 MG PO (02:59)
--- NOTE | 2024-10-05 07:34 | PC.NURSE ---
Assumed care pf pt. Pt sleeping with reg resp
[2024-10-05] MEDS: LACTULOSE 20 GM/30 ML UDC PO (09:28)
--- NOTE | 2024-10-05 09:38 | PC.NURSE ---
Pt awake but drowsy. Oriented to name & place. Linens changed, breakfast ordered.
--- NOTE | 2024-10-05 10:47 | PC.NURSE ---
Pt ate 100% of breakfast.
[2024-10-05 12:45] LABS: Basophils Percent Auto 0.7 % (0.2-1.2); Eosinophils Absolute Auto 0.1 K/mm3 (0-0.3); Eosinophils Percent Auto 1.3 % (0-4.4); Hematocrit 38.1 % (42.0-52.0); Immature Granulocyte Absolute 0.02 K/mm3 (0.00-0.031); Immature Granulocyte Percent A 0.3 % (0-0.5); Immature Platelet Fraction Pct 2.6 % (0.9-11.2); Lymphocytes Absolute Auto 0.87 K/mm3 (0.9-3.2); Lymphocytes Percent Auto 14.3 % (18.3-44.2); Mean Corpuscular HGB Conc 34.1 g/dl (32-36); Mean Corpuscular Hemoglobin 33.4 pg (26-34); Mean Corpuscular Volume 97.9 fl (80-100); Mean Platelet Volume 10.2 fl (7.4-10.4); Monocytes Absolute Auto 0.7 K/mm3 (0.1-0.6); Monocytes Percent Auto 11.5 % (2.6-8.5); Neutrophils Absolute Auto 4.4 K/mm3 (1.3-6.7); Neutrophils Percent Auto 71.9 % (45.5-73.1); Platelet Count Result 87 k/mm3 (150-375); Red Blood Count 3.89 M/mm3 (4.6-6.20); White Blood Count 6.1 K/mm3 (4.5-10.0)
[2024-10-05 12:55] LABS: Alanine Aminotransferase 29 U/L (6-50); Albumin Level 2.7 g/dL (3.5-5.1); Alkaline Phosphatase 137 U/L (38-126); Anion Gap 0 mmol/L (4-12); Aspartate Amino Transferase 42 U/L (17-59); Bilirubin,Total 3.2 mg/dL (0.2-1.3); Blood Urea Nitrogen 13 mg/dL (9-20); Calcium 8.2 mg/dL (8.4-10.2); Carbon Dioxide 29 mmol/L (22-30); Chloride 108 mmol/L (98-107); Estimated CRCL calculation 113 ml/min; Estimated Glomerular Filt Rate > 60; Glucose 158 mg/dL (65-110); INR 1.5; Potassium 3.7 mmol/L (3.4-5.0); Prothrombin Time 18.5 Seconds (11.1-14.7); Sodium 137 mmol/L (137-145)
[2024-10-05 12:56] LABS: Partial Thromboplastin Time 34.1 Seconds (22.3-36.8)
--- NOTE | 2024-10-05 13:10 | PC.NURSE ---
Pt a/o x4. Neuro checks WNL. Denies any c/o pain. Lunch tray ordered.
[2024-10-05 13:15] LABS: Ammonia 55 umol/L (9-30)
[2024-10-05] MEDS: carvediloL 3.125 MG TABLET PO (21:27)
[2024-10-05] MEDS: ATORVASTATIN 40 MG TABLET PO (21:29)
--- NOTE | 2024-10-05 22:41 | PC.NURSE ---
2215: spoke with [facility] transfer center regarding update on patient. VSS, AxO4 at this time, not requiring any IV medications. Still no bed, waiting to hear back with bed update
[2024-10-06] VITALS (53 sets, daily range): BP systolic 133–146; BP diastolic 68–81; PULSE 61–89; RESP 11–20; O2SAT 94–99
--- NOTE | 2024-10-06 03:05 | PC.NURSE ---
Assumed care of pt from KENYA Estrada at this time. Pt awaiting placement at [facility]. Call light within reach. No needs at this time.
--- NOTE | 2024-10-06 06:35 | PC.NURSE ---
Pt requesting home medication of Robaxin. This RN notified EDP Dr. Bunch of pt request, provider did not want to order medication at this time for risk of increasing pt drowsiness. Pt made aware of reasoning for not being able to order and had no other requests at this time.
--- NOTE | 2024-10-06 07:54 | PC.NURSE ---
Breakfast ordered for pt.
[2024-10-06] MEDS: carvediloL 3.125 MG TABLET PO ×2 (08:10→21:34)
[2024-10-06] MEDS: PANTOPRAZOLE 40 MG TABLET PO (08:10)
[2024-10-06] MEDS: FUROSEMIDE 20 MG TABLET PO (08:10)
[2024-10-06] MEDS: lisinopriL 20 MG TABLET PO (08:10)
[2024-10-06] MEDS: LACTULOSE 20 GM/30 ML UDC PO (08:10)
[2024-10-06] MEDS: MELOXICAM 7.5 MG TABLET PO (08:11)
[2024-10-06] MEDS: EMPAGLIFLOZIN 25 MG TABLET BY MOUTH (08:11)
[2024-10-06] MEDS: LORATADINE 10 MG TABLET BY MOUTH (08:11)
--- NOTE | 2024-10-06 08:17 | PC.NURSE ---
[id number] called pts , per pts request, no answer and voicemail was left.
--- NOTE | 2024-10-06 10:15 | PC.NURSE ---
Spoke with [facility] transfer center and gave update on pts status. They report the do not have a timeframe on a bed yet due to providers rounding.
--- NOTE | 2024-10-06 11:26 | PC.NURSE ---
Ordered lunch tray for pt.
--- NOTE | 2024-10-06 21:07 | PC.NURSE ---
This RN used the herlinda steady to get pt to bathroom. pt had one BM noted. pt wiped off with soap and water. Linen changed
[2024-10-06] MEDS: ATORVASTATIN 40 MG TABLET PO (21:34)
[2024-10-07] VITALS (38 sets, daily range): BP systolic 129–172; BP diastolic 67–86; PULSE 64–80; RESP 10–19; TEMP 36.7; O2SAT 86–99
--- NOTE | 2024-10-07 07:33 | PC.NURSE ---
breakfast tray ordered for pt at this time
[2024-10-07 08:10] LABS: Basophils Percent Auto 0.6 % (0.2-1.2); Eosinophils Absolute Auto 0.1 K/mm3 (0-0.3); Eosinophils Percent Auto 2.2 % (0-4.4); Hematocrit 39.5 % (42.0-52.0); Hemoglobin 13.7 g/dL (14.0-18.0); Immature Granulocyte Absolute 0.03 K/mm3 (0.00-0.031); Immature Granulocyte Percent A 0.5 % (0-0.5); Immature Platelet Fraction Pct 2.2 % (0.9-11.2); Lymphocytes Absolute Auto 1.71 K/mm3 (0.9-3.2); Lymphocytes Percent Auto 26.8 % (18.3-44.2); Mean Corpuscular HGB Conc 34.7 g/dl (32-36); Mean Corpuscular Hemoglobin 33.8 pg (26-34); Mean Corpuscular Volume 97.5 fl (80-100); Mean Platelet Volume 10.1 fl (7.4-10.4); Monocytes Absolute Auto 0.7 K/mm3 (0.1-0.6); Neutrophils Absolute Auto 3.8 K/mm3 (1.3-6.7); Neutrophils Percent Auto 58.9 % (45.5-73.1); Platelet Count Result 96 k/mm3 (150-375); Red Blood Count 4.05 M/mm3 (4.6-6.20); Red Cell Distribution Width 14.9 % (11.5-14.5); White Blood Count 6.4 K/mm3 (4.5-10.0)
[2024-10-07 08:19] LABS: Ammonia 55 umol/L (9-30)
[2024-10-07 08:20] LABS: Alanine Aminotransferase 32 U/L (6-50); Albumin Level 2.8 g/dL (3.5-5.1); Alkaline Phosphatase 183 U/L (38-126); Anion Gap 0 mmol/L (4-12); Aspartate Amino Transferase 39 U/L (17-59); Bilirubin,Total 2.6 mg/dL (0.2-1.3); Blood Urea Nitrogen 9 mg/dL (9-20); Calcium 8.5 mg/dL (8.4-10.2); Carbon Dioxide 27 mmol/L (22-30); Chloride 110 mmol/L (98-107); Estimated CRCL calculation 138 ml/min; Estimated Glomerular Filt Rate > 60; Glucose 89 mg/dL (65-110); Potassium 3.9 mmol/L (3.4-5.0); Sodium 137 mmol/L (137-145)
--- NOTE | 2024-10-07 08:40 | PC.NURSE ---
Tricia from [facility] called for recent VS and updates on pt, states they are continuing to work on placing pt and will call back when they have a bed assignment.
[2024-10-07] MEDS: MELOXICAM 7.5 MG TABLET PO (09:05)
[2024-10-07] MEDS: PANTOPRAZOLE 40 MG TABLET PO (09:06)
[2024-10-07] MEDS: FUROSEMIDE 20 MG TABLET PO (09:06)
[2024-10-07] MEDS: EMPAGLIFLOZIN 25 MG TABLET BY MOUTH (09:06)
[2024-10-07] MEDS: LACTULOSE 20 GM/30 ML UDC PO (09:07)
[2024-10-07] MEDS: LORATADINE 10 MG TABLET BY MOUTH (09:07)
[2024-10-07] MEDS: carvediloL 3.125 MG TABLET PO (09:07)
[2024-10-07] MEDS: lisinopriL 20 MG TABLET PO (09:08)
--- NOTE | 2024-10-07 11:13 | ED.PROGRESS ---
Subjective Date/time seen: 10/07/24 11:13 Interval history: Re-evaluation Review of Systems Review of Systems All systems reviewed & are unremarkable except as noted in HPI and below Exam Narrative APPEARANCE: Well appearing, no confusion HEAD: normocephalic, atraumatic. EYES: PERRLA/EOMI, conjunctivae clear. NOSE: Normal no drainage EARS:TMS clear with good light reflex. THROAT: Pharynx clear, no exudate. NECK: Supple. No adenopathy, no masses. RESPIRATORY: Airway patent, respirations nonlabored. Clear to auscultation bilaterally, no rales, rhonchi, wheezing. CARDIOVASCULAR: Regular rate and rhythm without murmurs rubs or gallops. ABDOMINAL: Soft, nontender, nondistended, normal bowel sounds MUSCULOSKELETAL: Moves all extremities. Strength/ROM intact, No edema, No calf tenderness. NEURO: Alert. Cranial nerves II through XII intact. Grossly intact SKIN: Warm, dry. Normal Color Objective Data Vital Signs Vital Signs: Vital Signs - 24 hr 10/06/24 19:20 10/06/24 19:30 10/06/24 19:45 Temperature Pulse Rate 80 80 75 Respiratory Rate 18 18 16 Blood Pressure 142/73 H Pulse Oximetry 98 97 98 10/06/24 21:34 10/06/24 20:22 10/06/24 20:30 Temperature Pulse Rate 73 77 87 Respiratory Rate 13 14 Blood Pressure Pulse Oximetry 98 98 10/06/24 21:37 10/06/24 22:25 10/06/24 22:30 Temperature Pulse Rate 69 72 83 Respiratory Rate 13 13 17 Blood Pressure Pulse Oximetry 98 96 96 10/06/24 22:45 10/06/24 23:00 10/06/24 23:15 Temperature Pulse Rate 75 76 73 Respiratory Rate 13 13 14 Blood Pressure Pulse Oximetry 96 97 96 10/06/24 23:30 10/06/24 23:47 10/07/24 00:07 Temperature Pulse Rate 75 77 73 Respiratory Rate 12 13 Blood Pressure Pulse Oximetry 98 97 96 10/07/24 00:15 10/07/24 00:30 10/07/24 00:49 Temperature Pulse Rate 72 73 75 Respiratory Rate 13 12 Blood Pressure Pulse Oximetry 98 97 96 10/07/24 01:27 10/07/24 01:30 10/07/24 01:46 Temperature Pulse Rate 69 72 80 Respiratory Rate 15 12 Blood Pressure Pulse Oximetry 93 98 96 10/07/24 02:07 10/07/24 02:20 10/07/24 02:30 Temperature Pulse Rate 80 74 72 Respiratory Rate 12 12 12 Blood Pressure Pulse Oximetry 96 96 96 10/07/24 02:58 10/07/24 03:06 10/07/24 03:14 Temperature Pulse Rate 69 76 71 Respiratory Rate 13 13 13 Blood Pressure 141/72 H Pulse Oximetry 95 96 95 10/07/24 03:15 10/07/24 03:30 10/07/24 03:45 Temperature Pulse Rate 78 69 71 Respiratory Rate 14 12 11 L Blood Pressure Pulse Oximetry 95 95 96 10/07/24 04:00 10/07/24 04:01 10/07/24 04:15 Temperature Pulse Rate 66 66 64 Respiratory Rate 12 11 L 10 L Blood Pressure 133/73 Pulse Oximetry 96 96 98 10/07/24 04:30 10/07/24 04:45 10/07/24 05:00 Temperature Pulse Rate 78 68 71 Respiratory Rate 15 10 L 14 Blood Pressure Pulse Oximetry 98 96 86 L 10/07/24 05:01 10/07/24 05:15 10/07/24 05:30 Temperature Pulse Rate 66 67 68 Respiratory Rate 14 12 12 Blood Pressure 172/67 H Pulse Oximetry 99 93 98 10/07/24 05:45 10/07/24 07:30 10/07/24 08:39 Temperature 98.0 F Pulse Rate 64 72 69 Respiratory Rate 12 12 13 Blood Pressure 172/67 H 129/71 152/78 H Pulse Oximetry 98 98 97 10/07/24 09:07 10/07/24 09:09 10/07/24 09:10 Temperature Pulse Rate 75 71 72 Respiratory Rate 13 Blood Pressure 151/74 H Pulse Oximetry 97 10/07/24 10:34 10/07/24 11:46 10/07/24 13:14 Temperature Pulse Rate 76 71 74 Respiratory Rate 19 13 19 Blood Pressure 161/84 H 143/73 H 148/86 H Pulse Oximetry 97 95 96 10/07/24 14:08 10/07/24 15:37 10/07/24 17:07 Temperature Pulse Rate 74 77 76 Respiratory Rate 14 14 15 Blood Pressure 141/78 H 134/85 131/70 Pulse Oximetry 97 99 97 Intake/Output Intake/Output: Intake & Output 10/04/24 10/05/24 10/06/24 10/07/24 23:59 23:59 23:59 23:59 Output Total 350 1200 Balance -350 -1200 Meds/Results Medications: Active Medications Generic Name Dose Route Start Last Admin Trade Name Murtazaq PRN Reason Stop Dose Admin Atorvastatin Calcium 40 mg 10/05/24 21:00 10/06/24 21:34 Atorvastatin 40 Mg Tablet PO 40 mg QHS LESLI Administration Carvedilol 3.125 mg 10/05/24 21:00 10/07/24 09:07 Carvedilol 3.125 Mg Tablet PO 3.125 mg Q12HR LESLI Administration Empagliflozin 25 mg 10/06/24 09:00 10/07/24 09:06 Empagliflozin 25 Mg Tablet BY MOUTH 25 mg DAILY LESLI Administration Furosemide 20 mg 10/06/24 09:00 10/07/24 09:06 Furosemide 20 Mg Tablet PO 20 mg QAM LESLI Administration Lactulose 20 gm 10/05/24 09:00 10/07/24 09:07 Lactulose 20 Gm/30 Ml Udc PO 20 gm QAM LESLI Administration Lisinopril 20 mg 10/06/24 09:00 10/07/24 09:08 Lisinopril 20 Mg Tablet PO 20 mg QAM LESLI Administration Loratadine 10 mg 10/06/24 09:00 10/07/24 09:07 Loratadine 10 Mg Tablet BY MOUTH 10 mg DAILY LESLI Administration Meloxicam 7.5 mg 10/06/24 08:00 10/07/24 09:05 Meloxicam 7.5 Mg Tablet PO 7.5 mg DAILY@0800 LESLI Administration Pantoprazole Sodium 40 mg 10/06/24 09:00 10/07/24 09:06 Pantoprazole 40 Mg Tablet PO 40 mg QAM LESLI Administration Radiology Results: ITS Impressions Chest X-Ray 10/03/24 21:15 IMPRESSION: No acute cardiopulmonary process. Head CT 10/03/24 21:58 IMPRESSION: No acute intracranial process. Abdomen/Pelvis CT 10/03/24 22:00 IMPRESSION: Mild esophagitis and moderate antral gastritis. Cirrhosis with portal hypertension. Contracted gallbladder versus gallbladder remnant or other chronic postsurgical collection. Correlate with surgical history. Small retained gallstones in the gallbladder neck versus dystrophic calcification. Mild common bile duct dilation, correlate with biliary labs. Labs Labs: Laboratory Results - last 24 hr 10/07/24 08:02 WBC 6.4 RBC 4.05 L Hgb 13.7 L Hct 39.5 L MCV 97.5 MCH 33.8 MCHC 34.7 RDW 14.9 H Plt Count 96 L MPV 10.1 Immature Gran % (Auto) 0.5 Neut % (Auto) 58.9 Lymph % (Auto) 26.8 [place]ades % (Auto) 11.0 H Eos % (Auto) 2.2 Baso % (Auto) 0.6 Lymph # (Auto) 1.71 [place]ades # (Auto) 0.7 H Eos # (Auto) 0.1 Baso # (Auto) 0.0 Abs Immat Gran (auto) 0.03 Absolute Neuts (auto) 3.8 Absolute Nucleated RBC 0.000 Nucleated RBC % 0.0 % Immature Plt Fraction 2.2 Sodium 137 Potassium 3.9 Chloride 110 H Carbon Dioxide 27 Anion Gap 0 L BUN 9 Creatinine 0.40 L Estim Creat Clear Calc 138 Estimated GFR > 60 Glucose 89 Calcium 8.5 Total Bilirubin 2.6 H AST 39 ALT 32 Alkaline Phosphatase 183 H Ammonia 55 H Total Protein 6.0 L Albumin 2.8 L Progress Note: A&P Assessment and Plan (1) AMS (altered mental status): Code(s): R41.82 - Altered mental status, unspecified Status: Acute Assessment and Plan: Patient is improved clinically and is being discharged home with outpatient follow-up Plan 68-year-old male waiting transfer to [facility] for cephalopathy to be seen by the direct marketing specialist. Patient is currently afebrile with no leukocytosis and hemoglobin of 13.7 patient's chemistries are similar to his previous. Patient's T bili has decreased from 3.2-2.6, alk-phos has increased, ammonia has been the same. Patient states he does feel improved and patient does not appear encephalopathic. Patient states he prefers to wait for the transfer to [place] rather than to be discharged home I re-paged [facility] and they states that he is still on the list to be admitted to the hospitalist. I asked to talk to the direct marketing specialist again. I did speak to Dr. Coleman, and while he is not aware the patient personally I did update him on the patient's status and he felt that if the patient was back to his normal baseline mental status he would be comfortable with the patient having outpatient follow-up. This plan was discussed with family and ultimately they were comfortable with the patient being discharged home. Patient is being started on lactulose as outpatient. And patient will have outpatient follow-up with his liver specialist. Time Spent With Patient Time: 15 min
--- NOTE | 2024-10-07 11:53 | PC.NURSE ---
spoke to pt daughter (BRE) per pt request as far as possible discharge home and f/u w/ GI due to pts mentation improving and returning to baseline. Pts daughter (Laya) requesting time to discuss w/ her family as well as pts liver specialist Dr Carrasco to find out if there is an appt for f/u available this week. Pts daughter will call back w/ decision. EDP Dr Jauregui notified.
--- NOTE | 2024-10-07 15:57 | PC.NURSE ---
This RN spoke to Ann (pts daughter) who states they are comfortable w/ pt being dc'd (pending update from EDP and questions answered at bedside), the family is coming from [place] and will head to ED to potentially pick pt up for discharge. Dr Jauregui updated. Marlyn phone# [phone]
== END 2024-10-07 18:51 | disposition home or self-care (01) ==
PROVIDERS: Emergency Medicine; Student in an Organized Health Care Education/Training Program; Emergency Provider Student in an Organized Health Care Education/Training Program; PCP Internal Medicine
DX: K76.82 Hepatic encephalopathy (principal); K74.60 Unspecified cirrhosis of liver; K76.6 Portal hypertension; R41.82 Altered mental status, unspecified; I10 Essential (primary) hypertension; E11.9 Type 2 diabetes mellitus without complications; F17.210 Nicotine dependence, cigarettes, uncomplicated; Z79.899 Other long term (current) drug therapy; Z79.84 Long term (current) use of oral hypoglycemic drugs; I45.10 Unspecified right bundle-branch block; K20.90 Esophagitis, unspecified without bleeding; K29.70 Gastritis, unspecified, without bleeding
CPT/HCPCS: 36415; 70450; 71045; 74177; 80053; 80143; 80179; 80307; 81001; 82077; 82140; 82948; 84443; 85025; 85055; 85610; 85730; 87040; 93005; 96360; 96361; 99284; A9270; J7120; Q9967